=== PATIENT | female | born 1965 | race Caucasian/White ===

== ENCOUNTER 2019-11-22 10:22 | Inpatient (IN) | payer MEDICAID ==
[2019-11-22] VITALS (14 sets, daily range): BP systolic 100–123; BP diastolic 55–76; BMI 24.4
[~2019-11-22] VITALS: Ht 160 cm; Wt 68.1 kg
[2019-11-22 18:02] LABS: BASOPHILS 0.1 % (0-2); EOSINOPHILS 0 % (0-7); HEMATOCRIT 36.8 % (36.0-48.0); HEMOGLOBIN 12.4 g/dL (12-16); MCH 30.4 pg (26.0-34.0); MCHC 33.7 g/dL (31.0-37.0); MCV 90.2 fL (80.0-100.0); MONOCYTES 2.4 % (2-11); NEUTROPHILS 90.5 % (40-80); PLATELET COUNT 325 10x3/uL (130-400); RBC 4.08 10x6/uL (4.00-5.40); RDW 14.1 % (11.5-14.5); WBC 16.7 10x3/uL (4.8-10.8)
[2019-11-22 18:52] LABS: CALCIUM 8.2 mg/dL (8.5-10.1); CREATININE - SERUM 0.9 mg/dL (0.6-1.3)
[2019-11-22 18:55] LABS: ANION GAP 4.1 mmol/L (8-16)
[2019-11-22 18:56] LABS: CARBON DIOXIDE 42.7 mmol/L (21.0-32.0); POTASSIUM - SERUM 2.8 mmol/L (3.5-5.1)
[2019-11-23] VITALS (24 sets, daily range): BP systolic 90–122; BP diastolic 51–93; Ht 160 cm; Wt 68.1 kg
[2019-11-23 05:57] LABS: CALC OSMOLALITY 282 mosm/kg (275-300); CALCIUM 7.9 mg/dL (8.5-10.1); CARBON DIOXIDE 38.8 mmol/L (21.0-32.0); CHLORIDE - SERUM 98 mmol/L (98-107); CREATININE - SERUM 0.8 mg/dL (0.6-1.3); GLUCOSE 135 mg/dL (74-106); SODIUM 139 mmol/L (136-145); UREA NITROGEN 20 mg/dL (7-18); eGFR NON AFRICAN AMERICAN 79 mL/min (90-120)
[2019-11-23 05:59] LABS: POTASSIUM - SERUM 3.4 mmol/L (3.5-5.1)
[2019-11-23 06:03] LABS: ALBUMIN 1.4 g/dL (3.4-5.0); ALKALINE PHOSPHATASE 188 U/L (30-120); ALT (SGPT) 24 U/L (10-68); BILIRUBIN - TOTAL 0.24 mg/dL (0.2-1.3); MAGNESIUM - SERUM 1.6 mg/dL (1.8-2.4); PHOSPHOROUS 2.5 mg/dL (2.5-4.9); PROTEIN - SERUM 5.9 g/dL (6.4-8.2)
[2019-11-23 06:09] LABS: HEPATITIS C ANTIBODY >11.0 S/CO RAT (0.0-0.9)
[2019-11-23 11:32] LABS: BILIRUBIN NEGATIVE (NEGATIVE); GLUCOSE NEGATIVE (NEGATIVE); KETONE NEGATIVE (NEGATIVE); NITRITE NEGATIVE (NEGATIVE); SPECIFIC GRAVITY 1.005 (1.005-1.020); UROBILINOGEN NORMAL (NORMAL)
[2019-11-23 11:33] LABS: BACTERIA FEW /hpf (NEGATIVE); EPITHELIAL CELLS RARE /hpf (0-5); RED CELLS - URINE OCC /hpf (0-5); WHITE CELLS - URINE RARE /hpf (NEGATIVE)
[2019-11-24] VITALS (23 sets, daily range): BP systolic 94–135; BP diastolic 51–101
[2019-11-24 04:51] LABS: BASOPHILS 0 % (0-2); EOSINOPHILS 0 % (0-7); HEMATOCRIT 33.2 % (36.0-48.0); HEMOGLOBIN 10.7 g/dL (12-16); LYMPHOCYTES 7.2 % (15-50); MCH 29.3 pg (26.0-34.0); MCHC 32.2 g/dL (31.0-37.0); MEAN PLATELET VOLUME 10.5 fL (7.4-10.4); MONOCYTES 3.9 % (2-11); NEUTROPHILS 87.9 % (40-80); RBC 3.65 10x6/uL (4.00-5.40); RDW 14.3 % (11.5-14.5); WBC 13.5 10x3/uL (4.8-10.8)
[2019-11-24 04:57] LABS: PLATELET COUNT 445 10x3/uL (130-400)
[2019-11-24 05:11] LABS: CALCIUM 7.6 mg/dL (8.5-10.1); CHLORIDE - SERUM 102 mmol/L (98-107); CREATININE - SERUM 0.8 mg/dL (0.6-1.3); MAGNESIUM - SERUM 1.5 mg/dL (1.8-2.4); PHOSPHOROUS 2.5 mg/dL (2.5-4.9); SODIUM 137 mmol/L (136-145); eGFR NON AFRICAN AMERICAN 79 mL/min (90-120)
[2019-11-24 05:12] LABS: CALC OSMOLALITY 280 mosm/kg (275-300); GLUCOSE 210 mg/dL (74-106); UREA NITROGEN 14 mg/dL (7-18)
[2019-11-24 10:10] LABS: IMMUNOGLOBULIN A 475 mg/dL (87-352); IMMUNOGLOBULIN G 788 mg/dL (700-1600)
[2019-11-24 14:09] LABS: HIV-1 RNA BY PCR <20 (())
--- NOTE | 2019-11-24 16:18 | MORECARE ---
CASE MANAGEMENT DISCHARGE SUMMARY PATIENT: ECHO RINALDI UNIT: [id number] ADM DATE: 11/22/19 AGE: 54 : 67 SEX: F ROOM/BED: D.2313 AUTHOR: CLAU KEY PHYSICIAN: REFERRING PHYSICIAN: SHREE DOMÍNGUEZ MD DATE OF SERVICE: 11/24/19 Discharge Plan Patient Name: ECHO RINALDI Facility: [facility]:[place] : 1965 Planned Disposition: Anticipated Discharge Date: Discharge Date: Expected LOS: Initial Reviewer: [email or web address] Initial Review Date: 11/24/2019 Generated: 11/24/19 5:18 pm Comments DCP- Discharge Planning Updated by [email or web address]: Maryanne Torie on 11/24/19 3:[address] Patient Name: ECHO RINLADI Admission Status: Elective Accout number: [id number] Admission Date: 11-22-2019 : 1965 Admission Diagnosis: Attending: SHREE DOMÍNGUEZ Current LOS: 2 Anticipated DC Date: Planned Disposition: Primary Insurance: MEDICAID [place] PENDING Discharge Planning Comments: CM MET WITH PATIENT AFTER OBTAINING VERBAL CONSENT. PATIENT PLANS TO DC TO HOME WHEN BETTER. STATES NO EQUIPMENT AT HOME. SHE HAS A CHEST TUBE AND IS ON O2 AT THIS TIME. MAY NEED WALK TEST PRIOR TO DC. UNSURE OF DC NEEDS AT THIS TIME. International Freight Forwarder: Maryanne Vogt DCPIA - Discharge Planning Initial Assessment Updated by [email or web address]: Maryanne Vogt on 11/24/19 4:06 pm * Is the patient Alert and Oriented? Yes * PCP NONE * Pharmacy [facility] * Preadmission Environment Home with Family * ADLs Independent * Additional services required to return to the preadmission environment? Yes * Can the patient safely return to the preadmission environment? Yes * Has this patient been hospitalized within the prior 30 days at any hospital? No Patient Name: ECHO RINALDI Page 24487 at 1618 All edits/amendments must be made on the electronic document DICTATION DATE: 11/24/19 1618 CONTENT PUBLISHER: CARMELINA 11/24/19 1618 RPT#: [id number] DC DATE: STATUS: ADM IN [facility] [address] [place] [address] END OF REPORT
[2019-11-25] VITALS (24 sets, daily range): BP systolic 96–167; BP diastolic 59–107
[2019-11-25 04:13] LABS: BASOPHILS 0 % (0-2); EOSINOPHILS 0 % (0-7); HEMATOCRIT 35.2 % (36.0-48.0); HEMOGLOBIN 11.2 g/dL (12-16); IMMATURE GRANULOCYTES 0.9 % (0-5); LYMPHOCYTES 5.7 % (15-50); MCH 29.2 pg (26.0-34.0); MCHC 31.8 g/dL (31.0-37.0); MCV 91.9 fL (80.0-100.0); MEAN PLATELET VOLUME 10.3 fL (7.4-10.4); NEUTROPHILS 90.4 % (40-80); PLATELET COUNT 498 10x3/uL (130-400); RBC 3.83 10x6/uL (4.00-5.40); RDW 14.6 % (11.5-14.5); WBC 14.9 10x3/uL (4.8-10.8)
[2019-11-25 04:29] LABS: CHLORIDE - SERUM 103 mmol/L (98-107); CREATININE - SERUM 0.8 mg/dL (0.6-1.3); MAGNESIUM - SERUM 1.8 mg/dL (1.8-2.4); POTASSIUM - SERUM 4.5 mmol/L (3.5-5.1); SODIUM 138 mmol/L (136-145); eGFR NON AFRICAN AMERICAN 79 mL/min (90-120)
[2019-11-25 04:37] LABS: CALC OSMOLALITY 280 mosm/kg (275-300); GLUCOSE 140 mg/dL (74-106); PHOSPHOROUS 3.3 mg/dL (2.5-4.9); UREA NITROGEN 22 mg/dL (7-18)
[2019-11-26] VITALS (24 sets, daily range): BP systolic 90–169; BP diastolic 55–133
[2019-11-26 04:10] LABS: BASOPHILS 0.1 % (0-2); EOSINOPHILS 0 % (0-7); HEMATOCRIT 33.3 % (36.0-48.0); HEMOGLOBIN 10.7 g/dL (12-16); IMMATURE GRANULOCYTES 0.6 % (0-5); LYMPHOCYTES 4.5 % (15-50); MCH 29.4 pg (26.0-34.0); MCHC 32.1 g/dL (31.0-37.0); MCV 91.5 fL (80.0-100.0); MEAN PLATELET VOLUME 9.9 fL (7.4-10.4); MONOCYTES 2.3 % (2-11); NEUTROPHILS 92.5 % (40-80); PLATELET COUNT 512 10x3/uL (130-400); RBC 3.64 10x6/uL (4.00-5.40); RDW 14.4 % (11.5-14.5); WBC 18.1 10x3/uL (4.8-10.8)
[2019-11-26 04:36] LABS: CALC OSMOLALITY 285 mosm/kg (275-300); CALCIUM 7.8 mg/dL (8.5-10.1); CARBON DIOXIDE 30.7 mmol/L (21.0-32.0); CHLORIDE - SERUM 104 mmol/L (98-107); CREATININE - SERUM 0.8 mg/dL (0.6-1.3); GLUCOSE 145 mg/dL (74-106); MAGNESIUM - SERUM 1.7 mg/dL (1.8-2.4); POTASSIUM - SERUM 4.2 mmol/L (3.5-5.1); SODIUM 140 mmol/L (136-145); UREA NITROGEN 24 mg/dL (7-18); eGFR NON AFRICAN AMERICAN 79 mL/min (90-120)
[2019-11-26 04:39] LABS: PHOSPHOROUS 4.5 mg/dL (2.5-4.9)
[2019-11-26 20:06] LABS: IMMUNOGLOBULIN E 257 IU/mL (6-495)
[2019-11-27] VITALS (20 sets, daily range): BP systolic 93–123; BP diastolic 47–85
[2019-11-27 05:12] LABS: BASOPHILS 0 % (0-2); EOSINOPHILS 0 % (0-7); HEMATOCRIT 32.2 % (36.0-48.0); HEMOGLOBIN 10.4 g/dL (12-16); IMMATURE GRANULOCYTES 0.6 % (0-5); LYMPHOCYTES 6.6 % (15-50); MCH 29.2 pg (26.0-34.0); MCHC 32.3 g/dL (31.0-37.0); MCV 90.4 fL (80.0-100.0); MEAN PLATELET VOLUME 9.8 fL (7.4-10.4); MONOCYTES 3.2 % (2-11); NEUTROPHILS 89.6 % (40-80); PLATELET COUNT 563 10x3/uL (130-400); RBC 3.56 10x6/uL (4.00-5.40); RDW 14.6 % (11.5-14.5); WBC 15.4 10x3/uL (4.8-10.8)
[2019-11-27 05:22] LABS: ANION GAP 11.6 mmol/L (8-16); CALCIUM 7.5 mg/dL (8.5-10.1); CARBON DIOXIDE 31.1 mmol/L (21.0-32.0); CREATININE - SERUM 0.9 mg/dL (0.6-1.3); MAGNESIUM - SERUM 1.8 mg/dL (1.8-2.4); PHOSPHOROUS 3.7 mg/dL (2.5-4.9); POTASSIUM - SERUM 3.7 mmol/L (3.5-5.1); VANCOMYCIN - TROUGH 22.5 ug/mL (10.0-20.0)
[2019-11-28] VITALS (24 sets, daily range): BP systolic 81–115; BP diastolic 42–79
[2019-11-28 04:24] LABS: BASOPHILS 0 % (0-2); EOSINOPHILS 1.6 % (0-7); HEMATOCRIT 35.7 % (36.0-48.0); HEMOGLOBIN 11.5 g/dL (12-16); IMMATURE GRANULOCYTES 0.8 % (0-5); LYMPHOCYTES 13.3 % (15-50); MCH 29.9 pg (26.0-34.0); MCHC 32.2 g/dL (31.0-37.0); MEAN PLATELET VOLUME 9.7 fL (7.4-10.4); NEUTROPHILS 79.3 % (40-80); PLATELET COUNT 661 10x3/uL (130-400); RBC 3.85 10x6/uL (4.00-5.40); RDW 15.3 % (11.5-14.5); WBC 15.8 10x3/uL (4.8-10.8)
[2019-11-28 04:45] LABS: MCV 92.7 fL (80.0-100.0)
[2019-11-28 05:02] LABS: CALC OSMOLALITY 283 mosm/kg (275-300); CALCIUM 7.6 mg/dL (8.5-10.1); CARBON DIOXIDE 31.3 mmol/L (21.0-32.0); CHLORIDE - SERUM 104 mmol/L (98-107); CREATININE - SERUM 0.8 mg/dL (0.6-1.3); MAGNESIUM - SERUM 1.7 mg/dL (1.8-2.4); PHOSPHOROUS 4.2 mg/dL (2.5-4.9); POTASSIUM - SERUM 3.7 mmol/L (3.5-5.1); SODIUM 141 mmol/L (136-145); UREA NITROGEN 25 mg/dL (7-18); eGFR NON AFRICAN AMERICAN 79 mL/min (90-120)
[2019-11-28 05:04] LABS: GLUCOSE 81 mg/dL (74-106)
[2019-11-29] VITALS (22 sets, daily range): BP systolic 74–132; BP diastolic 50–92
[2019-11-30] VITALS (23 sets, daily range): BP systolic 83–150; BP diastolic 65–109
[2019-11-30 06:09] LABS: IGG SUBCLASS 1 388 mg/dL (248-810); IGG SUBCLASS 2 159 mg/dL (130-555); IGG SUBCLASS 3 44 mg/dL (15-102); IGG SUBCLASS 4 10 mg/dL (2-96); IGGS - IGG SERUM 682 mg/dL (700-1600)
[2019-12-01] VITALS (24 sets, daily range): BP systolic 104–151; BP diastolic 44–103
--- NOTE | 2019-12-01 11:31 | OP ---
PATIENT NAME: ECHO RINALDI MEDICAL RECORD: [id number] :67 LOCATION:.[facility] D.2313 ADMISSION DATE:11/22/19 SURGEON: IFEANYI TSE MD DATE OF OPERATION: 11/30/2019 SURGEON: Ifeanyi Tse MD PROCEDURE: Left tube thoracostomy. INDICATION: Bullous emphysema and pneumonia, left lung and pneumothorax. PROCEDURE IN DETAIL: The patient in the operating suite, the old chest tube where it had sutured in has essentially come out and it was removed. The left chest was prepped and draped. A 1% Xylocaine was used for local anesthetic and the pneumothorax was localized with a small needle. A 2 cm skin incision was made, spread down to the chest wall and a trocar 28 chest tube was inserted without difficulty and sutured into place, connected to the Pleur-evac. The old chest tube site was irrigated with vancomycin irrigation and closed with 2-0 nylon sutures and the patient returned to the ICU in stable condition. TRANSINT:[id number] Voice Confirmation ID: [id number] DOCUMENT ID: [id number] IFEANYI TSE MD at 1131 CC: PENNY GRACE MD [id number] DICTATION DATE: 11/30/19 1420 DOWEL SETTING MACHINE OPERATOR: 12/01/19 0102 ADM IN [place] [address] [place] [id number]
[2019-12-02] VITALS (23 sets, daily range): BP systolic 107–153; BP diastolic 58–94
[2019-12-03] VITALS (24 sets, daily range): BP systolic 105–143; BP diastolic 65–101
[2019-12-03 02:47] LABS: BASOPHILS 0 % (0-2); EOSINOPHILS 0 % (0-7); HEMATOCRIT 34.7 % (36.0-48.0); HEMOGLOBIN 10.9 g/dL (12-16); IMMATURE GRANULOCYTES 0.4 % (0-5); LYMPHOCYTES 4.9 % (15-50); MCH 29.9 pg (26.0-34.0); MCHC 31.4 g/dL (31.0-37.0); MCV 95.1 fL (80.0-100.0); MEAN PLATELET VOLUME 9.3 fL (7.4-10.4); MONOCYTES 1.4 % (2-11); NEUTROPHILS 93.3 % (40-80); RBC 3.65 10x6/uL (4.00-5.40); RDW 15.6 % (11.5-14.5); WBC 12.6 10x3/uL (4.8-10.8)
[2019-12-03 02:53] LABS: PLATELET COUNT 460 10x3/uL (130-400)
[2019-12-03 02:58] LABS: INR 0.87 (0.85-1.17); PROTIME 11.9 SECONDS (11.6-15.0)
[2019-12-03 03:12] LABS: ALKALINE PHOSPHATASE 121 U/L (30-120); ALT (SGPT) 25 U/L (10-68); BILIRUBIN - TOTAL 0.23 mg/dL (0.2-1.3); CALC OSMOLALITY 285 mosm/kg (275-300); CALCIUM 8.3 mg/dL (8.5-10.1); CHLORIDE - SERUM 105 mmol/L (98-107); CREATININE - SERUM 0.8 mg/dL (0.6-1.3); POTASSIUM - SERUM 4.3 mmol/L (3.5-5.1); PROTEIN - SERUM 5.5 g/dL (6.4-8.2); SODIUM 139 mmol/L (136-145); UREA NITROGEN 20 mg/dL (7-18); eGFR NON AFRICAN AMERICAN 79 mL/min (90-120)
[2019-12-03 03:13] LABS: GLUCOSE 190 mg/dL (74-106)
[2019-12-04] VITALS (27 sets, daily range): BP systolic 92–139; BP diastolic 51–85
[2019-12-04 05:28] LABS: BASOPHILS 0 % (0-2); EOSINOPHILS 0 % (0-7); HEMATOCRIT 32.8 % (36.0-48.0); HEMOGLOBIN 10.3 g/dL (12-16); IMMATURE GRANULOCYTES 0.6 % (0-5); LYMPHOCYTES 6.9 % (15-50); MCH 29.8 pg (26.0-34.0); MCHC 31.4 g/dL (31.0-37.0); MCV 94.8 fL (80.0-100.0); MEAN PLATELET VOLUME 9.7 fL (7.4-10.4); MONOCYTES 3.3 % (2-11); NEUTROPHILS 89.2 % (40-80); RBC 3.46 10x6/uL (4.00-5.40); RDW 15.5 % (11.5-14.5); WBC 10.9 10x3/uL (4.8-10.8)
[2019-12-04 05:33] LABS: PLATELET COUNT 246 10x3/uL (130-400)
[2019-12-04 06:02] LABS: ALKALINE PHOSPHATASE 117 U/L (30-120); ALT (SGPT) 26 U/L (10-68); BILIRUBIN - TOTAL 0.17 mg/dL (0.2-1.3); CALC OSMOLALITY 282 mosm/kg (275-300); CALCIUM 7.8 mg/dL (8.5-10.1); CARBON DIOXIDE 32.2 mmol/L (21.0-32.0); CHLORIDE - SERUM 104 mmol/L (98-107); CREATININE - SERUM 0.7 mg/dL (0.6-1.3); GLUCOSE 163 mg/dL (74-106); POTASSIUM - SERUM 4.1 mmol/L (3.5-5.1); PROTEIN - SERUM 5.3 g/dL (6.4-8.2); SODIUM 138 mmol/L (136-145); UREA NITROGEN 20 mg/dL (7-18); eGFR NON AFRICAN AMERICAN > 90 mL/min (90-120)
[2019-12-04 07:11] LABS: INR 0.89 (0.85-1.17)
[2019-12-05] VITALS (39 sets, daily range): BP systolic 91–121; BP diastolic 30–92
[2019-12-05 06:58] LABS: HEMATOCRIT 27.1 % (36.0-48.0); HEMOGLOBIN 8.9 g/dL (12-16); MCH 30.7 pg (26.0-34.0); MCHC 32.8 g/dL (31.0-37.0); MCV 93.4 fL (80.0-100.0); MEAN PLATELET VOLUME 9.4 fL (7.4-10.4); RBC 2.9 10x6/uL (4.00-5.40); RDW 15.5 % (11.5-14.5); WBC 13.5 10x3/uL (4.8-10.8)
[2019-12-05 07:12] LABS: ALBUMIN 1.8 g/dL (3.4-5.0); ALKALINE PHOSPHATASE 90 U/L (30-120); ALT (SGPT) 25 U/L (10-68); BILIRUBIN - TOTAL 0.31 mg/dL (0.2-1.3); CALC OSMOLALITY 274 mosm/kg (275-300); CALCIUM 7.7 mg/dL (8.5-10.1); CARBON DIOXIDE 33.5 mmol/L (21.0-32.0); CHLORIDE - SERUM 102 mmol/L (98-107); CREATININE - SERUM 0.6 mg/dL (0.6-1.3); GLUCOSE 94 mg/dL (74-106); MAGNESIUM - SERUM 1.8 mg/dL (1.8-2.4); PHOSPHOROUS 3.7 mg/dL (2.5-4.9); POTASSIUM - SERUM 3.7 mmol/L (3.5-5.1); PROTEIN - SERUM 4.5 g/dL (6.4-8.2); SODIUM 136 mmol/L (136-145); UREA NITROGEN 20 mg/dL (7-18); eGFR NON AFRICAN AMERICAN > 90 mL/min (90-120)
--- NOTE | 2019-12-05 11:43 | OP ---
PATIENT NAME: ECHO RINALDI MEDICAL RECORD: [id number] :67 LOCATION:D[facility] D.CV03 ADMISSION DATE:11/22/19 SURGEON: DANY TSE MD DATE OF OPERATION: 12/04/2019 SURGEON: Dany Tse MD PROCEDURES PERFORMED: 1. Left thoracotomy. 2. Decortication left lower lobe. 3. Left upper lobe lobectomy. 4. Bronchoscopy. PREOPERATIVE DIAGNOSIS: Empyema and pneumonia. 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 ANESTHESIA: Double lumen, general endotracheal anesthesia. ESTIMATED BLOOD LOSS: 200 cc. COMPLICATION: None. SPECIMENS: 1. Pleural culture. 2. Abscess cavity culture. 3. Biopsy of the necrotic upper lobe. 4. Completion lobectomy of the left upper lobe. 5. Necrotic section upper lobe. CONDITION: Stable. DISPOSITION: ICU. OPERATIVE FINDINGS: 1. Federico pus within the pleural cavity walled off in the lower area by the lower lung, which was decorticated with a chronic appearing pleural rind, small air leaks after decortication. 2. Most of the upper lobe was brownish discoloration with destruction of the lung tissue and evidence of bronchopleural fistula from the depths making any lung resection less than a lobectomy and possible. 3. Bronchial stump airtight under water after resection. 4. Bronchoscopy with no endobronchial lesions. INDICATION: Persistent air leak consistent with a chronic pneumonia and bronchopleural fistula as well as empyema and loculated fluid posteriorly PROCEDURE IN DETAIL: The patient was brought to the operative suite. Double lumen general endotracheal anesthesia was obtained, right lung ventilation was performed. The patient turned to lateral decubitus position with appropriate padding. The chest tube was removed. The chest was sterilely prepped and draped. Posterolateral thoracotomy was made. A portion of the 6th rib was taken out posteriorly to allow a trapdoor type thoracotomy, pleural cavity was entered. The pleural fluid was cultured. The parietal pleura and visceral OPERATIVE REPORT [id number] ECHO RINALDI pleura were cleared. Decortication of the lower lobe was performed. The fissure was opened and the inferior pulmonary ligament was taken down to allow expansion lower lobe. Attention of the upper lobe revealed that the lung was necrotic with no way to save this lung; therefore branches of the pulmonary artery were stapled or tied and divided. The superior pulmonary vein was divided between a staple. The fissure was completed with a staple line and the bronchus was clamped. The lower lobe inflated then reduced. Bronchus was stapled and resected. Bronchial stump was intact. It was oversewn. Thorough irrigation was undertaken. The pleura was inflamed from the previous empyema and not amenable to use as a pleural flap over the bronchus, but the hilum of the lung covered the bronchus well. The lung was reinflated with no apparent air leak, tubes were placed posteriorly and superiorly. Progel was placed along the fissure and then the chest was closed with pericostal sutures running muscle layer times 2 subcutaneous and skin clips. The patient is stable to CV ICU. TRANSINT:[id number] Voice Confirmation ID: [id number] DOCUMENT ID: [id number] DANY TSE MD at 1143 CC: YOSELIN CHERRY MD [id number] DICTATION DATE: 12/04/19 1319 HR DIRECTOR: 12/04/19 1804 ADM IN [facility] [address] [place] [address]
[2019-12-06] VITALS (44 sets, daily range): BP systolic 89–141; BP diastolic 38–85
[2019-12-06 06:39] LABS: BASOPHILS 0.1 % (0-2); EOSINOPHILS 1.6 % (0-7); HEMATOCRIT 30.1 % (36.0-48.0); HEMOGLOBIN 9.4 g/dL (12-16); IMMATURE GRANULOCYTES 0.9 % (0-5); LYMPHOCYTES 18.7 % (15-50); MCH 29.6 pg (26.0-34.0); MCHC 31.2 g/dL (31.0-37.0); MCV 94.7 fL (80.0-100.0); MEAN PLATELET VOLUME 9.7 fL (7.4-10.4); MONOCYTES 5.6 % (2-11); NEUTROPHILS 73.1 % (40-80); PLATELET COUNT 314 10x3/uL (130-400); RBC 3.18 10x6/uL (4.00-5.40); RDW 15.8 % (11.5-14.5); WBC 11.6 10x3/uL (4.8-10.8)
[2019-12-06 06:43] LABS: ALBUMIN 1.8 g/dL (3.4-5.0); ALKALINE PHOSPHATASE 91 U/L (30-120); ALT (SGPT) 28 U/L (10-68); BILIRUBIN - TOTAL 0.32 mg/dL (0.2-1.3); CALC OSMOLALITY 280 mosm/kg (275-300); CALCIUM 7.8 mg/dL (8.5-10.1); CARBON DIOXIDE 32.9 mmol/L (21.0-32.0); CHLORIDE - SERUM 104 mmol/L (98-107); CREATININE - SERUM 0.6 mg/dL (0.6-1.3); GLUCOSE 80 mg/dL (74-106); MAGNESIUM - SERUM 1.8 mg/dL (1.8-2.4); POTASSIUM - SERUM 3.8 mmol/L (3.5-5.1); PROTEIN - SERUM 4.9 g/dL (6.4-8.2); SODIUM 141 mmol/L (136-145); UREA NITROGEN 15 mg/dL (7-18); eGFR NON AFRICAN AMERICAN > 90 mL/min (90-120)
[2019-12-06 06:53] LABS: PHOSPHOROUS 2.7 mg/dL (2.5-4.9)
[2019-12-07] VITALS (24 sets, daily range): BP systolic 97–136; BP diastolic 52–77
[2019-12-07 06:30] LABS: HEMATOCRIT 29.4 % (36.0-48.0); HEMOGLOBIN 9.3 g/dL (12-16); MCH 29.6 pg (26.0-34.0); MCHC 31.6 g/dL (31.0-37.0); MCV 93.6 fL (80.0-100.0); MEAN PLATELET VOLUME 10.1 fL (7.4-10.4); RBC 3.14 10x6/uL (4.00-5.40); WBC 11.4 10x3/uL (4.8-10.8)
[2019-12-07 06:55] LABS: ALBUMIN 1.7 g/dL (3.4-5.0); ALKALINE PHOSPHATASE 91 U/L (30-120); ALT (SGPT) 26 U/L (10-68); BILIRUBIN - TOTAL 0.22 mg/dL (0.2-1.3); CALC OSMOLALITY 275 mosm/kg (275-300); CALCIUM 7.9 mg/dL (8.5-10.1); CHLORIDE - SERUM 101 mmol/L (98-107); CREATININE - SERUM 0.5 mg/dL (0.6-1.3); GLUCOSE 117 mg/dL (74-106); POTASSIUM - SERUM 4.1 mmol/L (3.5-5.1); PROTEIN - SERUM 5.1 g/dL (6.4-8.2); SODIUM 137 mmol/L (136-145); UREA NITROGEN 14 mg/dL (7-18); eGFR NON AFRICAN AMERICAN > 90 mL/min (90-120)
--- NOTE | 2019-12-07 19:59 | MORECARE ---
CASE MANAGEMENT DISCHARGE SUMMARY PATIENT: ECHO RINALDI UNIT: [id number] ADM DATE: 11/22/19 AGE: 54 : 67 SEX: F ROOM/BED: D[facility] AUTHOR: SHAHID,DOC PHYSICIAN: REFERRING PHYSICIAN: SHREE DOMÍNGUEZ MD DATE OF SERVICE: 12/07/19 Discharge Plan Patient Name: ECHO RINALDI Facility: [facility]:[place] : 1965 Planned Disposition: Anticipated Discharge Date: Discharge Date: Expected LOS: Initial Reviewer: [id number] Initial Review Date: 11/24/2019 Generated: 12/07/19 8:58 pm Comments DCP- Discharge Planning Updated by [email or web address]: Rosibel Aquino on 12/07/19 6:[address] CM checked with Glynn in [employer] to see if patient's Medicaid has went through processing yet. He stated that it hasn't yet but hopefully any day. CM will continue to follow this status to help with discharge planning / needs. DCP- Discharge Planning Updated by [email or web address]: Maryanne Vogt on 11/24/19 3:[address] Patient Name: ECHO RINALDI Admission Status: Elective Accout number: [id number] Admission Date: 11-22-2019 : 1965 Admission Diagnosis: Attending: SHREE DOMÍNGUEZ Current LOS: 2 Anticipated DC Date: Planned Disposition: Primary Insurance: MEDICAID [place] PENDING Discharge Planning Comments: CM MET WITH PATIENT AFTER OBTAINING VERBAL CONSENT. PATIENT PLANS TO DC TO HOME WHEN BETTER. STATES NO EQUIPMENT AT HOME. SHE HAS A CHEST TUBE AND IS ON O2 AT THIS TIME. MAY NEED WALK TEST PRIOR TO DC. UNSURE OF DC NEEDS AT THIS TIME. Sagger Soak: Maryanne Vogt DCPIA - Discharge Planning Initial Assessment Updated by [email or web address]: Maryanne Vogt on 11/24/19 4:06 pm * Is the patient Alert and Oriented? Yes * PCP NONE * Pharmacy [facility] * Preadmission Environment Home with Family * ADLs Independent * Additional services required to return to the preadmission environment? Yes * Can the patient safely return to the preadmission environment? Yes * Has this patient been hospitalized within the prior 30 days at any hospital? No Last DP export: 11/24/19 3:18 pm Patient Name: ECHO RINALDI Page 28544 at 195 All edits/amendments must be made on the electronic document DICTATION DATE: 12/07/191957 BUFFING LINE SET UP WORKER: CARMELINA 12/07/191957 RPT#: [id number] DC DATE: STATUS: ADM IN [facility] [address] [place] [address] END OF REPORT
[2019-12-08] VITALS (25 sets, daily range): BP systolic 92–135; BP diastolic 53–75
[2019-12-08 06:09] LABS: HEMATOCRIT 27.3 % (36.0-48.0); HEMOGLOBIN 8.6 g/dL (12-16); MCH 29.8 pg (26.0-34.0); MCHC 31.5 g/dL (31.0-37.0); MCV 94.5 fL (80.0-100.0); MEAN PLATELET VOLUME 9.8 fL (7.4-10.4); RBC 2.89 10x6/uL (4.00-5.40); WBC 9.3 10x3/uL (4.8-10.8)
[2019-12-08 06:48] LABS: ALBUMIN 1.7 g/dL (3.4-5.0); ALKALINE PHOSPHATASE 92 U/L (30-120); ALT (SGPT) 24 U/L (10-68); BILIRUBIN - TOTAL 0.16 mg/dL (0.2-1.3); CALC OSMOLALITY 276 mosm/kg (275-300); CALCIUM 7.8 mg/dL (8.5-10.1); CARBON DIOXIDE 33.8 mmol/L (21.0-32.0); CHLORIDE - SERUM 103 mmol/L (98-107); CREATININE - SERUM 0.6 mg/dL (0.6-1.3); GLUCOSE 108 mg/dL (74-106); POTASSIUM - SERUM 3.8 mmol/L (3.5-5.1); PROTEIN - SERUM 4.8 g/dL (6.4-8.2); SODIUM 138 mmol/L (136-145); UREA NITROGEN 12 mg/dL (7-18); eGFR NON AFRICAN AMERICAN > 90 mL/min (90-120)
[2019-12-09] VITALS (24 sets, daily range): BP systolic 88–130; BP diastolic 55–80
[2019-12-09 06:02] LABS: HEMATOCRIT 28.3 % (36.0-48.0); HEMOGLOBIN 8.8 g/dL (12-16); MCH 29.4 pg (26.0-34.0); MCHC 31.1 g/dL (31.0-37.0); MCV 94.6 fL (80.0-100.0); RBC 2.99 10x6/uL (4.00-5.40); RDW 16.1 % (11.5-14.5); WBC 8.3 10x3/uL (4.8-10.8)
[2019-12-09 06:25] LABS: ALBUMIN 1.7 g/dL (3.4-5.0); ALKALINE PHOSPHATASE 99 U/L (30-120); ALT (SGPT) 26 U/L (10-68); BILIRUBIN - TOTAL 0.17 mg/dL (0.2-1.3); CALC OSMOLALITY 274 mosm/kg (275-300); CALCIUM 7.9 mg/dL (8.5-10.1); CARBON DIOXIDE 32.4 mmol/L (21.0-32.0); CHLORIDE - SERUM 102 mmol/L (98-107); CREATININE - SERUM 0.6 mg/dL (0.6-1.3); GLUCOSE 83 mg/dL (74-106); POTASSIUM - SERUM 4.3 mmol/L (3.5-5.1); PROTEIN - SERUM 5.1 g/dL (6.4-8.2); SODIUM 138 mmol/L (136-145); UREA NITROGEN 13 mg/dL (7-18); eGFR NON AFRICAN AMERICAN > 90 mL/min (90-120)
[2019-12-10] VITALS (23 sets, daily range): BP systolic 84–124; BP diastolic 47–83
[2019-12-10 05:30] LABS: HEMATOCRIT 28.1 % (36.0-48.0); HEMOGLOBIN 8.9 g/dL (12-16); MCH 30.1 pg (26.0-34.0); MCHC 31.7 g/dL (31.0-37.0); MCV 94.9 fL (80.0-100.0); MEAN PLATELET VOLUME 9.9 fL (7.4-10.4); RBC 2.96 10x6/uL (4.00-5.40); RDW 15.7 % (11.5-14.5); WBC 7.3 10x3/uL (4.8-10.8)
[2019-12-10 05:59] LABS: ALBUMIN 1.8 g/dL (3.4-5.0); ALKALINE PHOSPHATASE 104 U/L (30-120); ALT (SGPT) 25 U/L (10-68); BILIRUBIN - TOTAL 0.22 mg/dL (0.2-1.3); CALC OSMOLALITY 279 mosm/kg (275-300); CALCIUM 8.1 mg/dL (8.5-10.1); CARBON DIOXIDE 33.7 mmol/L (21.0-32.0); CHLORIDE - SERUM 104 mmol/L (98-107); CREATININE - SERUM 0.6 mg/dL (0.6-1.3); GLUCOSE 118 mg/dL (74-106); POTASSIUM - SERUM 4.2 mmol/L (3.5-5.1); PROTEIN - SERUM 5.2 g/dL (6.4-8.2); SODIUM 140 mmol/L (136-145); UREA NITROGEN 12 mg/dL (7-18); eGFR NON AFRICAN AMERICAN > 90 mL/min (90-120)
[2019-12-11] VITALS (24 sets, daily range): BP systolic 97–134; BP diastolic 53–87
[2019-12-11 07:17] LABS: BASOPHILS 0.5 % (0-2); EOSINOPHILS 3.5 % (0-7); HEMOGLOBIN 10.4 g/dL (12-16); IMMATURE GRANULOCYTES 1.8 % (0-5); LYMPHOCYTES 23.8 % (15-50); MCH 29.9 pg (26.0-34.0); MCHC 31.5 g/dL (31.0-37.0); MCV 94.8 fL (80.0-100.0); MEAN PLATELET VOLUME 9.9 fL (7.4-10.4); MONOCYTES 3.4 % (2-11); RBC 3.48 10x6/uL (4.00-5.40); RDW 16.1 % (11.5-14.5)
[2019-12-11 07:28] LABS: PLATELET COUNT 361 10x3/uL (130-400); WBC 9.7 10x3/uL (4.8-10.8)
[2019-12-11 07:33] LABS: ALKALINE PHOSPHATASE 138 U/L (30-120); ALT (SGPT) 31 U/L (10-68); BILIRUBIN - TOTAL 0.21 mg/dL (0.2-1.3); CALC OSMOLALITY 268 mosm/kg (275-300); CALCIUM 8.6 mg/dL (8.5-10.1); CARBON DIOXIDE 33.1 mmol/L (21.0-32.0); CHLORIDE - SERUM 100 mmol/L (98-107); CREATININE - SERUM 0.7 mg/dL (0.6-1.3); GLUCOSE 90 mg/dL (74-106); POTASSIUM - SERUM 3.6 mmol/L (3.5-5.1); PROTEIN - SERUM 6.5 g/dL (6.4-8.2); SODIUM 135 mmol/L (136-145); UREA NITROGEN 11 mg/dL (7-18); eGFR NON AFRICAN AMERICAN > 90 mL/min (90-120)
[2019-12-11 07:34] LABS: ALBUMIN 2.5 g/dL (3.4-5.0)
[2019-12-12] VITALS (24 sets, daily range): BP systolic 94–124; BP diastolic 60–77
[2019-12-12 06:06] LABS: HEMOGLOBIN 8.6 g/dL (12-16); MCH 29.6 pg (26.0-34.0); MCHC 31.9 g/dL (31.0-37.0); MEAN PLATELET VOLUME 9.6 fL (7.4-10.4); RBC 2.91 10x6/uL (4.00-5.40); RDW 16.2 % (11.5-14.5); WBC 7.5 10x3/uL (4.8-10.8)
[2019-12-12 06:09] LABS: MCV 92.8 fL (80.0-100.0)
[2019-12-12 06:27] LABS: ALBUMIN 1.9 g/dL (3.4-5.0); ALKALINE PHOSPHATASE 108 U/L (30-120); ALT (SGPT) 26 U/L (10-68); CALC OSMOLALITY 278 mosm/kg (275-300); CARBON DIOXIDE 32.5 mmol/L (21.0-32.0); CHLORIDE - SERUM 104 mmol/L (98-107); CREATININE - SERUM 0.7 mg/dL (0.6-1.3); GLUCOSE 84 mg/dL (74-106); POTASSIUM - SERUM 3.7 mmol/L (3.5-5.1); SODIUM 141 mmol/L (136-145); UREA NITROGEN 11 mg/dL (7-18); eGFR NON AFRICAN AMERICAN > 90 mL/min (90-120)
[2019-12-13] VITALS (21 sets, daily range): BP systolic 97–130; BP diastolic 57–86
[2019-12-13 07:03] LABS: HEMATOCRIT 30.7 % (36.0-48.0); HEMOGLOBIN 9.7 g/dL (12-16); MCH 29.8 pg (26.0-34.0); MCHC 31.6 g/dL (31.0-37.0); MCV 94.2 fL (80.0-100.0); MEAN PLATELET VOLUME 9.9 fL (7.4-10.4); RBC 3.26 10x6/uL (4.00-5.40); RDW 16.3 % (11.5-14.5)
[2019-12-13 07:05] LABS: ALBUMIN 2.2 g/dL (3.4-5.0); ALKALINE PHOSPHATASE 123 U/L (30-120); BILIRUBIN - TOTAL 0.32 mg/dL (0.2-1.3); CALC OSMOLALITY 274 mosm/kg (275-300); CALCIUM 8.3 mg/dL (8.5-10.1); CARBON DIOXIDE 27.1 mmol/L (21.0-32.0); CHLORIDE - SERUM 103 mmol/L (98-107); CREATININE - SERUM 0.6 mg/dL (0.6-1.3); GLUCOSE 96 mg/dL (74-106); POTASSIUM - SERUM 3.6 mmol/L (3.5-5.1); PROTEIN - SERUM 5.7 g/dL (6.4-8.2); SODIUM 138 mmol/L (136-145); UREA NITROGEN 10 mg/dL (7-18); eGFR NON AFRICAN AMERICAN > 90 mL/min (90-120)
[2019-12-13 07:07] LABS: ALT (SGPT) 37 U/L (10-68)
[2019-12-13 07:14] LABS: WBC 10.2 10x3/uL (4.8-10.8)
[2019-12-14] VITALS (10 sets, daily range): BP systolic 99–138; BP diastolic 61–81
[2019-12-14 07:57] LABS: BASOPHILS 0.4 % (0-2); EOSINOPHILS 3.6 % (0-7); HEMATOCRIT 32.1 % (36.0-48.0); IMMATURE GRANULOCYTES 1.1 % (0-5); LYMPHOCYTES 27.3 % (15-50); MCH 29.3 pg (26.0-34.0); MCHC 31.2 g/dL (31.0-37.0); MCV 94.1 fL (80.0-100.0); MEAN PLATELET VOLUME 9.8 fL (7.4-10.4); MONOCYTES 5.1 % (2-11); NEUTROPHILS 62.5 % (40-80); PLATELET COUNT 430 10x3/uL (130-400); RBC 3.41 10x6/uL (4.00-5.40); RDW 16.3 % (11.5-14.5)
[2019-12-14 08:05] LABS: CALC OSMOLALITY 277 mosm/kg (275-300); CALCIUM 8.3 mg/dL (8.5-10.1); CARBON DIOXIDE 29.4 mmol/L (21.0-32.0); CHLORIDE - SERUM 104 mmol/L (98-107); GLUCOSE 105 mg/dL (74-106); POTASSIUM - SERUM 3.7 mmol/L (3.5-5.1); SODIUM 139 mmol/L (136-145); UREA NITROGEN 12 mg/dL (7-18); eGFR NON AFRICAN AMERICAN 79 mL/min (90-120)
[2019-12-14 08:08] LABS: CREATININE - SERUM 0.8 mg/dL (0.6-1.3)
[2019-12-14 08:12] LABS: WBC 7.3 10x3/uL (4.8-10.8)
[2019-12-15] VITALS: BP 113/69; BP 120/73
[2019-12-15 04:00] VITALS: BP 123/83
[2019-12-15 04:20] LABS: BASOPHILS 0.5 % (0-2); EOSINOPHILS 3.3 % (0-7); HEMATOCRIT 30.3 % (36.0-48.0); HEMOGLOBIN 9.6 g/dL (12-16); IMMATURE GRANULOCYTES 1.3 % (0-5); LYMPHOCYTES 20.1 % (15-50); MCHC 31.7 g/dL (31.0-37.0); MCV 94.7 fL (80.0-100.0); MEAN PLATELET VOLUME 10.1 fL (7.4-10.4); MONOCYTES 5.8 % (2-11); PLATELET COUNT 465 10x3/uL (130-400); RDW 16.2 % (11.5-14.5); WBC 7.6 10x3/uL (4.8-10.8)
[2019-12-15 04:31] LABS: CALCIUM 8.2 mg/dL (8.5-10.1); CARBON DIOXIDE 28.7 mmol/L (21.0-32.0); CREATININE - SERUM 0.9 mg/dL (0.6-1.3); POTASSIUM - SERUM 3.7 mmol/L (3.5-5.1)
[2019-12-15 09:30] VITALS: BP 107/62
[2019-12-15 13:50] VITALS: BP 105/70
[2019-12-15 17:37] VITALS: BP 121/81
[2019-12-15 20:00] VITALS: BP 103/65
[2019-12-16] VITALS: BP 113/77
[2019-12-16 06:42] LABS: BASOPHILS 0.4 % (0-2); EOSINOPHILS 3.8 % (0-7); HEMATOCRIT 31.4 % (36.0-48.0); HEMOGLOBIN 9.7 g/dL (12-16); IMMATURE GRANULOCYTES 0.7 % (0-5); MCH 29.3 pg (26.0-34.0); MCHC 30.9 g/dL (31.0-37.0); MCV 94.9 fL (80.0-100.0); MONOCYTES 5.3 % (2-11); NEUTROPHILS 64.8 % (40-80); PLATELET COUNT 478 10x3/uL (130-400); RBC 3.31 10x6/uL (4.00-5.40); RDW 16.3 % (11.5-14.5); WBC 7.3 10x3/uL (4.8-10.8)
[2019-12-16 07:08] LABS: CALC OSMOLALITY 280 mosm/kg (275-300); CALCIUM 8.3 mg/dL (8.5-10.1); CARBON DIOXIDE 27.9 mmol/L (21.0-32.0); CHLORIDE - SERUM 106 mmol/L (98-107); GLUCOSE 92 mg/dL (74-106); POTASSIUM - SERUM 3.8 mmol/L (3.5-5.1); SODIUM 141 mmol/L (136-145); UREA NITROGEN 12 mg/dL (7-18)
[2019-12-16 07:11] LABS: CREATININE - SERUM 0.6 mg/dL (0.6-1.3); eGFR NON AFRICAN AMERICAN > 90 mL/min (90-120)
[2019-12-16 08:48] VITALS: BP 116/70
[2019-12-16 13:01] VITALS: BP 110/75
[2019-12-16 16:34] VITALS: BP 113/77
[2019-12-16 19:46] VITALS: BP 119/70
[2019-12-17] VITALS: BP 120/77
[2019-12-17 04:00] VITALS: BP 120/80
[2019-12-17 06:19] LABS: BASOPHILS 0.1 % (0-2); EOSINOPHILS 4.6 % (0-7); HEMATOCRIT 30.6 % (36.0-48.0); HEMOGLOBIN 9.4 g/dL (12-16); LYMPHOCYTES 24.1 % (15-50); MCH 29.1 pg (26.0-34.0); MCHC 30.7 g/dL (31.0-37.0); MCV 94.7 fL (80.0-100.0); MEAN PLATELET VOLUME 9.8 fL (7.4-10.4); MONOCYTES 6.8 % (2-11); NEUTROPHILS 63.4 % (40-80); PLATELET COUNT 448 10x3/uL (130-400); RBC 3.23 10x6/uL (4.00-5.40); RDW 15.9 % (11.5-14.5); WBC 6.9 10x3/uL (4.8-10.8)
[2019-12-17 06:54] LABS: CALC OSMOLALITY 282 mosm/kg (275-300); CALCIUM 8.6 mg/dL (8.5-10.1); CARBON DIOXIDE 25.2 mmol/L (21.0-32.0); CHLORIDE - SERUM 107 mmol/L (98-107); CREATININE - SERUM 0.6 mg/dL (0.6-1.3); GLUCOSE 95 mg/dL (74-106); MAGNESIUM - SERUM 1.8 mg/dL (1.8-2.4); PHOSPHOROUS 4.3 mg/dL (2.5-4.9); POTASSIUM - SERUM 3.7 mmol/L (3.5-5.1); SODIUM 142 mmol/L (136-145); UREA NITROGEN 12 mg/dL (7-18); eGFR NON AFRICAN AMERICAN > 90 mL/min (90-120)
[2019-12-17 07:52] VITALS: BP 113/71
[2019-12-17 11:54] VITALS: BP 96/57
[2019-12-17 16:07] VITALS: BP 104/62
[2019-12-17 20:00] VITALS: BP 111/71
[2019-12-18] VITALS: BP 113/55
[2019-12-18 04:00] VITALS: BP 117/67
[2019-12-18 04:47] LABS: BASOPHILS 0.7 % (0-2); EOSINOPHILS 4.5 % (0-7); HEMATOCRIT 29.1 % (36.0-48.0); IMMATURE GRANULOCYTES 0.6 % (0-5); MCHC 30.9 g/dL (31.0-37.0); MCV 93.9 fL (80.0-100.0); MONOCYTES 7.3 % (2-11); NEUTROPHILS 56.9 % (40-80); PLATELET COUNT 464 10x3/uL (130-400); RDW 15.6 % (11.5-14.5); WBC 6.7 10x3/uL (4.8-10.8)
[2019-12-18 05:03] LABS: CALC OSMOLALITY 270 mosm/kg (275-300); CALCIUM 8.2 mg/dL (8.5-10.1); CARBON DIOXIDE 25.4 mmol/L (21.0-32.0); CHLORIDE - SERUM 103 mmol/L (98-107); CREATININE - SERUM 0.7 mg/dL (0.6-1.3); GLUCOSE 103 mg/dL (74-106); MAGNESIUM - SERUM 1.7 mg/dL (1.8-2.4); PHOSPHOROUS 4.7 mg/dL (2.5-4.9); POTASSIUM - SERUM 3.6 mmol/L (3.5-5.1); SODIUM 136 mmol/L (136-145); UREA NITROGEN 11 mg/dL (7-18); eGFR NON AFRICAN AMERICAN > 90 mL/min (90-120)
[2019-12-18 08:40] VITALS: BP 119/78
--- NOTE | 2019-12-18 11:17 | MORECARE ---
CASE MANAGEMENT DISCHARGE SUMMARY PATIENT: ECHO RINALDI UNIT: [id number] ADM DATE: 11/22/19 AGE: 54 : 67 SEX: F ROOM/BED: D.2202 AUTHOR: SHAHID,DOC PHYSICIAN: REFERRING PHYSICIAN: SHREE DOMÍNGUEZ MD DATE OF SERVICE: 12/18/19 Discharge Plan Patient Name: ECHO RINALDI Facility: [facility]:[place] : 1965 Planned Disposition: Anticipated Discharge Date: Discharge Date: Expected LOS: Initial Reviewer: [email or web address] Initial Review Date: 11/24/2019 Generated: 12/18/19 12:16 pm Comments DCP- Discharge Planning Updated by [email or web address]: Rosibel Aquino on 12/07/19 6:[address] CM checked with Glynn in [employer] to see if patient's Medicaid has went through processing yet. He stated that it hasn't yet but hopefully any day. CM will continue to follow this status to help with discharge planning / needs. DCP- Discharge Planning Updated by [email or web address]: Maryanne Vogt on 11/24/19 3:[address] Patient Name: ECHO RINALDI Admission Status: Elective Accout number: [id number] Admission Date: 11-22-2019 : 1965 Admission Diagnosis: Attending: SHREE DOMÍNGUEZ Current LOS: 2 Anticipated DC Date: Planned Disposition: Primary Insurance: MEDICAID [place] PENDING Discharge Planning Comments: CM MET WITH PATIENT AFTER OBTAINING VERBAL CONSENT. PATIENT PLANS TO DC TO HOME WHEN BETTER. STATES NO EQUIPMENT AT HOME. SHE HAS A CHEST TUBE AND IS ON O2 AT THIS TIME. MAY NEED WALK TEST PRIOR TO DC. UNSURE OF DC NEEDS AT THIS TIME. Passenger Car Inspector: Maryanne Vogt DCPIA - Discharge Planning Initial Assessment Updated by [email or web address]: Maryanne Vogt on 11/24/19 4:06 pm * Is the patient Alert and Oriented? Yes * PCP NONE * Pharmacy [facility] * Preadmission Environment Home with Family * ADLs Independent * Additional services required to return to the preadmission environment? Yes * Can the patient safely return to the preadmission environment? Yes * Has this patient been hospitalized within the prior 30 days at any hospital? No External Providers External Provider: [facility] Next Contact Date: Service Request Date: Service Type: Resolution: Reviewer: Comments: Last DP export: 12/07/19 6:58 p Patient Name: ECHO RINALDI Page 14603 at 1117 All edits/amendments must be made on the electronic document DICTATION DATE: 12/18/19 1116 DATA WAREHOUSING MANAGER: CARMELINA 12/18/19 1116 RPT#: [id number] DC DATE: STATUS: ADM IN [facility] [address] [place] [address] END OF REPORT
--- NOTE | 2019-12-18 11:25 | MORECARE ---
CASE MANAGEMENT DISCHARGE SUMMARY PATIENT: ECHO RINALDI UNIT: [id number] ADM DATE: 11/22/19 AGE: 54 : 67 SEX: F ROOM/BED: D.2202 AUTHOR: SHAHID,DOC PHYSICIAN: REFERRING PHYSICIAN: SHREE DOMÍNGUEZ MD DATE OF SERVICE: 12/18/19 Discharge Plan Patient Name: ECHO RINALDI Facility: [facility]:[place] : 1965 Planned Disposition: Anticipated Discharge Date: Discharge Date: Expected LOS: Initial Reviewer: [email or web address] Initial Review Date: 11/24/2019 Generated: 12/18/19 12:24 pm Comments DCP- Discharge Planning Updated by [email or web address]: Malou Rico on 12/18/19 10:[address] RAY WITH [facility] SAID THAT THEY WOULD LOOK TO SEE IF THEY COULD TAKE THE PATIENT BEING FLOYD PENDING. I HAVE SENT THE REFRRAL OVER TO HIM. I ALSO CALLED NANI IN [employer] AND HE THOUGHT HER FLOYD IS ACTIVE OF NOW DCP- Discharge Planning Updated by [email or web address]: Rosibel Aquino on 12/07/19 6:[address] CM checked with Nani in [employer] to see if patient's Medicaid has went through processing yet. He stated that it hasn't yet but hopefully any day. CM will continue to follow this status to help with discharge planning / needs. DCP- Discharge Planning Updated by [email or web address]: Maryanne Vogt on 11/24/19 3:[address] Patient Name: ECHO RINALDI Admission Status: Elective Accout number: [id number] Admission Date: 11-22-2019 : 1965 Admission Diagnosis: Attending: SHREE DOMÍNGUEZ Current LOS: 2 Anticipated DC Date: Planned Disposition: Primary Insurance: MEDICAID [place] PENDING Discharge Planning Comments: CM MET WITH PATIENT AFTER OBTAINING VERBAL CONSENT. PATIENT PLANS TO DC TO HOME WHEN BETTER. STATES NO EQUIPMENT AT HOME. SHE HAS A CHEST TUBE AND IS ON O2 AT THIS TIME. MAY NEED WALK TEST PRIOR TO DC. UNSURE OF DC NEEDS AT THIS TIME. Development Specialist: Maryanne Vogt DCPIA - Discharge Planning Initial Assessment Updated by [id number]: Maryanne Vogt on 11/24/19 4:06 pm * Is the patient Alert and Oriented? Yes * PCP NONE * Pharmacy [facility] * Preadmission Environment Home with Family * ADLs Independent * Additional services required to return to the preadmission environment? Yes * Can the patient safely return to the preadmission environment? Yes * Has this patient been hospitalized within the prior 30 days at any hospital? No Last DP export: 12/18/19 10:17 am Patient Name: ECHO RINALDI Page 15008 at 1125 All edits/amendments must be made on the electronic document DICTATION DATE: 12/18/19 112 BUSINESS PROCESS MODELER: CARMELINA 12/18/19 1124 RPT#: [id number] DC DATE: STATUS: ADM IN [facility] [address] [place] [address] END OF REPORT
[2019-12-18 12:12] VITALS: BP 131/72
--- NOTE | 2019-12-18 14:48 | MORECARE ---
CASE MANAGEMENT DISCHARGE SUMMARY PATIENT: ECHO RINALDI UNIT: [id number] ADM DATE: 11/22/19 AGE: 54 : 67 SEX: F ROOM/BED: D.2202 AUTHOR: SHAHID,DOC PHYSICIAN: REFERRING PHYSICIAN: SHREE DOMÍNGUEZ MD DATE OF SERVICE: 12/18/19 Discharge Plan Patient Name: ECHO RINALDI Facility: [facility]:[place] : 1965 Planned Disposition: Anticipated Discharge Date: Discharge Date: Expected LOS: Initial Reviewer: [id number] Initial Review Date: 11/24/2019 Generated: 12/18/19 3:47 pm Comments DCP- Discharge Planning Updated by [email or web address]: Malou Rico on 12/18/19 1:[address] SPOKE WITH PATIENT ABOUT DISCHARGE PLANNING NEEDS. HER FLOYD IS ACTIVE, BUT SHE DOES NOT HAVE A PCP. [facility] ([place] [phone]) NEEDS A PHYSICAL ADDRESS. THE ADDRESS THE PATIENT GAVE ME WAS, WHICH WAS ANASTASIA'S ADDRESS (FRIEND) [address] [place] [id number] SHE DOES NOT HAVE ANY MINUTES ON HER PHONE SO SHE GAVE ME HER SISTER'S NUMBER [phone] (ERASMO) SHE STATED THAT SHE WOULD BE STAYING AT HER BROTHERS (ALEJANDRO'S) HOME. SHE DID NOT KNOW HIS ADDRESS OR HIS NUMBER, BUT HE WOULD BE THE ONE TO PICK HER UP. I WILL ATTEMPT TO TRY TO FIND HER A PCP IN THE [place] ARE[place]. CM TO CONTINUE TO FOLLOW AND ASSIST NEEDED DCP- Discharge Planning Updated by [email or web address]: Malou Rico on 12/18/19 10:[address] RAY WITH [employer] [facility] SAID THAT THEY WOULD LOOK TO SEE IF THEY COULD TAKE THE PATIENT BEING FLOYD PENDING. I HAVE SENT THE REFRRAL OVER TO HIM. I ALSO CALLED NANI IN [employer] AND HE THOUGHT HER FLOYD IS ACTIVE OF NOW DCP- Discharge Planning Updated by [email or web address]: Rosibel Aquino on 12/07/19 6:[address] CM checked with Nani in [employer] to see if patient's Medicaid has went through processing yet. He stated that it hasn't yet but hopefully any day. CM will continue to follow this status to help with discharge planning / needs. DCP- Discharge Planning Updated by [email or web address]: Maryanne Vogt on 11/24/19 3:[address] Patient Name: ECHO RINALDI Admission Status: Elective Accout number: [id number] Admission Date: 11-22-2019 : 1965 Admission Diagnosis: Attending: SHREE DOMÍNGUEZ Current LOS: 2 Anticipated DC Date: Planned Disposition: Primary Insurance: MEDICAID [place] PENDING Discharge Planning Comments: CM MET WITH PATIENT AFTER OBTAINING VERBAL CONSENT. PATIENT PLANS TO DC TO HOME WHEN BETTER. STATES NO EQUIPMENT AT HOME. SHE HAS A CHEST TUBE AND IS ON O2 AT THIS TIME. MAY NEED WALK TEST PRIOR TO DC. UNSURE OF DC NEEDS AT THIS TIME. Talent Program Manager: Maryanne Torie DCPIA - Discharge Planning Initial Assessment Updated by [id number]: Maryanne Vogt on 11/24/19 4:06 pm * Is the patient Alert and Oriented? Yes * PCP NONE * Pharmacy [facility] * Preadmission Environment Home with Family * ADLs Independent * Additional services required to return to the preadmission environment? Yes * Can the patient safely return to the preadmission environment? Yes * Has this patient been hospitalized within the prior 30 days at any hospital? No Last DP export: 12/18/19 10:25 am Patient Name: ECHO RINALDI Page 99955 at 1448 All edits/amendments must be made on the electronic document DICTATION DATE: 12/18/19 1447 SALES MANAGER [place]: CARMELINA 12/18/19 1447 RPT#: [id number] DC DATE: STATUS: ADM IN [facility] [address] [place] [address] END OF REPORT
--- NOTE | 2019-12-18 15:24 | MORECARE ---
CASE MANAGEMENT DISCHARGE SUMMARY PATIENT: ECHO RINALDI UNIT: [id number] ADM DATE: 11/22/19 AGE: 54 : 67 SEX: F ROOM/BED: D.2202 AUTHOR: SHAHID,DOC PHYSICIAN: REFERRING PHYSICIAN: SHREE DOMÍNGUEZ MD DATE OF SERVICE: 12/18/19 Discharge Plan Patient Name: ECHO RINALDI Facility: [facility]:[place] : 1965 Planned Disposition: Anticipated Discharge Date: Discharge Date: Expected LOS: Initial Reviewer: [email or web address] Initial Review Date: 11/24/2019 Generated: 12/18/19 4:24 pm Comments DCP- Discharge Planning Updated by [id number]: Malou Rico on 12/18/19 2:[address] SPOKE WITH [facility] [phone] TRYING TO GET A PCP FOR THE PATIENT. THEY ARE ACCEPTING FLOYD PATIENT'S, BUT THEY WILL HAVE TO BE SCREENED TO SEE IF THEY WERE GOING TO ACCEPT HER [facility] FOLLOW UP APPOINTMENT FOR WedDecember @ 3:00 PM. I WILL FAX CLINICALS TO [phone] BONNIE HICKEY. I SPOKE WITH HER ABOUT THE PATIENT. DR STEVE IS THE PCP. CM WILL FAX ALL CLINICALS TO THE OFFICE DCP- Discharge Planning Updated by [email or web address]: Malou Rico on 12/18/19 1:[address] SPOKE WITH PATIENT ABOUT DISCHARGE PLANNING NEEDS. HER FLOYD IS ACTIVE, BUT SHE DOES NOT HAVE A PCP. [facility] ([place] [phone]) NEEDS A PHYSICAL ADDRESS. THE ADDRESS THE PATIENT GAVE ME WAS, WHICH WAS ANASTASIA'S ADDRESS (FRIEND) [address] [facility] [address] SHE DOES NOT HAVE ANY MINUTES ON HER PHONE SO SHE GAVE ME HER SISTER'S NUMBER [phone] (ERASMO) SHE STATED THAT SHE WOULD BE STAYING AT HER BROTHERS (ALEJANDRO'S) HOME. SHE DID NOT KNOW HIS ADDRESS OR HIS NUMBER, BUT HE WOULD BE THE ONE TO PICK HER UP. I WILL ATTEMPT TO TRY TO FIND HER A PCP IN THE [place]. CM TO CONTINUE TO FOLLOW AND ASSIST NEEDED DCP- Discharge Planning Updated by [email or web address]: Malou Trisha on 12/18/19 10:[address] RAY WITH [facility] SAID THAT THEY WOULD LOOK TO SEE IF THEY COULD TAKE THE PATIENT BEING FLOYD PENDING. I HAVE SENT THE REFRRAL OVER TO HIM. I ALSO CALLED NANI IN [employer] AND HE THOUGHT HER FLOYD IS ACTIVE OF NOW DCP- Discharge Planning Updated by [id number]: Rosibel Miles on 12/07/19 6:[address] CM checked with Nani in [employer] to see if patient's Medicaid has went through processing yet. He stated that it hasn't yet but hopefully any day. CM will continue to follow this status to help with discharge planning / needs. DCP- Discharge Planning Updated by [email or web address]: Maryannebryanna Vogt on 11/24/19 3:[address] Patient Name: ECHO RINALDI Admission Status: Elective Accout number: [id number] Admission Date: 11-22-2019 : 1965 Admission Diagnosis: Attending: SHREE DOMÍNGUEZ Current LOS: 2 Anticipated DC Date: Planned Disposition: Primary Insurance: MEDICAID [place] PENDING Discharge Planning Comments: CM MET WITH PATIENT AFTER OBTAINING VERBAL CONSENT. PATIENT PLANS TO DC TO HOME WHEN BETTER. STATES NO EQUIPMENT AT HOME. SHE HAS A CHEST TUBE AND IS ON O2 AT THIS TIME. MAY NEED WALK TEST PRIOR TO DC. UNSURE OF DC NEEDS AT THIS TIME. Warehouse Supervisor 3Rd Shift: Maryanne Vogt DCPIA - Discharge Planning Initial Assessment Updated by [email or web address]: Maryanne Torie on 11/24/19 4:06 pm * Is the patient Alert and Oriented? Yes * PCP NONE * Pharmacy [facility] * Preadmission Environment Home with Family * ADLs Independent * Additional services required to return to the preadmission environment? Yes * Can the patient safely return to the preadmission environment? Yes * Has this patient been hospitalized within the prior 30 days at any hospital? No Last DP export: 12/18/19 1:48 pm Patient Name: ECHO RINALDI Page 17506 at 1524 All edits/amendments must be made on the electronic document DICTATION DATE: 12/18/19 1524 FLAT BED OPERATOR: CARMELINA 12/18/19 1524 RPT#: [id number] DC DATE: STATUS: ADM IN [facility] [address] [place] [address] END OF REPORT
[2019-12-18 16:01] VITALS: BP 126/65
[2019-12-18 20:00] VITALS: BP 117/68
[2019-12-19] VITALS: BP 121/72
[2019-12-19 04:00] VITALS: BP 107/77
[2019-12-19 05:34] LABS: BASOPHILS 0.6 % (0-2); EOSINOPHILS 5.4 % (0-7); HEMATOCRIT 29.8 % (36.0-48.0); HEMOGLOBIN 9.3 g/dL (12-16); IMMATURE GRANULOCYTES 0.8 % (0-5); LYMPHOCYTES 31.1 % (15-50); MCH 29.2 pg (26.0-34.0); MCHC 31.2 g/dL (31.0-37.0); MCV 93.4 fL (80.0-100.0); MEAN PLATELET VOLUME 10.2 fL (7.4-10.4); MONOCYTES 8.1 % (2-11); PLATELET COUNT 470 10x3/uL (130-400); RBC 3.19 10x6/uL (4.00-5.40); RDW 15.1 % (11.5-14.5); WBC 6.3 10x3/uL (4.8-10.8)
[2019-12-19 06:17] LABS: CALC OSMOLALITY 272 mosm/kg (275-300); CALCIUM 8.6 mg/dL (8.5-10.1); CARBON DIOXIDE 26.3 mmol/L (21.0-32.0); CHLORIDE - SERUM 103 mmol/L (98-107); CREATININE - SERUM 0.7 mg/dL (0.6-1.3); GLUCOSE 93 mg/dL (74-106); MAGNESIUM - SERUM 1.8 mg/dL (1.8-2.4); POTASSIUM - SERUM 4.1 mmol/L (3.5-5.1); SODIUM 137 mmol/L (136-145); UREA NITROGEN 9 mg/dL (7-18); eGFR NON AFRICAN AMERICAN > 90 mL/min (90-120)
[2019-12-19 09:11] VITALS: BP 117/70
--- NOTE | 2019-12-19 10:13 | MORECARE ---
CASE MANAGEMENT DISCHARGE SUMMARY PATIENT: ECHO RINALDI UNIT: [id number] ADM DATE: 11/22/19 AGE: 54 : 67 SEX: F ROOM/BED: D.2202 AUTHOR: SHAHID,DOC PHYSICIAN: REFERRING PHYSICIAN: SHREE DOMÍNGUEZ MD DATE OF SERVICE: 12/19/19 Discharge Plan Patient Name: ECHO RINALDI Facility: [facility]:[place] : 1965 Planned Disposition: Anticipated Discharge Date: Discharge Date: Expected LOS: Initial Reviewer: [id number] Initial Review Date: 11/24/2019 Generated: 12/19/19 11:13 am Comments DCP- Discharge Planning Updated by [id number]: Malou Rico on 12/18/19 2:[address] SPOKE WITH [facility] [phone] TRYING TO GET A PCP FOR THE PATIENT. THEY ARE ACCEPTING FLOYD PATIENT'S, BUT THEY WILL HAVE TO BE SCREENED TO SEE IF THEY WERE GOING TO ACCEPT HER [facility] APPOINTMENT FOR WedDecember @ 3:00 PM. I WILL FAX CLINICALS TO [phone] BONNIE HICKEY. I SPOKE WITH HER ABOUT THE PATIENT. DR STEVE IS THE PCP. CM WILL FAX ALL CLINICALS TO THE OFFICE DCP- Discharge Planning Updated by [id number]: Malou Rico on 12/18/19 1:[address] SPOKE WITH PATIENT ABOUT DISCHARGE PLANNING NEEDS. HER FLOYD IS ACTIVE, BUT SHE DOES NOT HAVE A PCP. [employer] ([place] [phone]) NEEDS A PHYSICAL ADDRESS. THE ADDRESS THE PATIENT GAVE ME WAS, WHICH WAS ANASTASIA'S ADDRESS (FRIEND) [address] [address] SHE DOES NOT HAVE ANY MINUTES ON HER PHONE SO SHE GAVE ME HER SISTER'S NUMBER [phone] (ERASMO) SHE STATED THAT SHE WOULD BE STAYING AT HER BROTHERS (ALEJANDRO'S) HOME. SHE DID NOT KNOW HIS ADDRESS OR HIS NUMBER, BUT HE WOULD BE THE ONE TO PICK HER UP. I WILL ATTEMPT TO TRY TO FIND HER A PCP IN THE [place] AREA. CM TO CONTINUE TO FOLLOW AND ASSIST NEEDED DCP- Discharge Planning Updated by [id number]: Malou Trisha on 12/18/19 10:[address] RAY WITH [employer] SAID THAT THEY WOULD LOOK TO SEE IF THEY COULD TAKE THE PATIENT BEING FLOYD PENDING. I HAVE SENT THE REFRRAL OVER TO HIM. I ALSO CALLED NANI IN [employer] AND HE THOUGHT HER FLOYD IS ACTIVE OF NOW DCP- Discharge Planning Updated by [email or web address]: Rosibel Miles on 12/07/19 6:[address] CM checked with Nani in [employer] to see if patient's Medicaid has went through processing yet. He stated that it hasn't yet but hopefully any day. CM will continue to follow this status to help with discharge planning / needs. DCP- Discharge Planning Updated by [email or web address]: Maryanne Torie on 11/24/19 3:[address] Patient Name: ECHO RINALDI Admission Status: Elective Accout number: [id number] Admission Date: 11-22-2019 : 1965 Admission Diagnosis: Attending: SHREE DOMÍNGUEZ Current LOS: 2 Anticipated DC Date: Planned Disposition: Primary Insurance: MEDICAID [place] PENDING Discharge Planning Comments: CM MET WITH PATIENT AFTER OBTAINING VERBAL CONSENT. PATIENT PLANS TO DC TO HOME WHEN BETTER. STATES NO EQUIPMENT AT HOME. SHE HAS A CHEST TUBE AND IS ON O2 AT THIS TIME. MAY NEED WALK TEST PRIOR TO DC. UNSURE OF DC NEEDS AT THIS TIME. X Ray Equipment Mechanic: Maryanne Vogt DCPIA - Discharge Planning Initial Assessment Updated by [email or web address]: Maryanne Vogt on 11/24/19 4:06 pm * Is the patient Alert and Oriented? Yes * PCP NONE * Pharmacy [facility] * Preadmission Environment Home with Family * ADLs Independent * Additional services required to return to the preadmission environment? Yes * Can the patient safely return to the preadmission environment? Yes * Has this patient been hospitalized within the prior 30 days at any hospital? No External Providers External Provider: OTHER-OTHER Next Contact Date: Service Request Date: Service Type: Resolution: Reviewer: Comments: Last DP export: 12/18/19 2:24 pm Patient Name: ECHO RINALDI Page [phone] at 1013 All edits/amendments must be made on the electronic document DICTATION DATE: 12/19/19 1013 SENIOR ASSISTANT MANAGER: CARMELINA 12/19/19 1013 RPT#: [id number] DC DATE: STATUS: ADM IN [facility] [address] [place] [address] END OF REPORT
[2019-12-19 13:31] VITALS: BP 119/71
[2019-12-19] MEDS ORDERED: ALBUTEROL2.5 MG/3 M INH (15:34)
[2019-12-19] MEDS ORDERED: ABILIFY10 MG PO (15:34)
[2019-12-19] MEDS ORDERED: SINGULAIR10 MG PO (15:35)
[2019-12-19] MEDS ORDERED: TESSALON PERLE100 MG PO (15:35)
[2019-12-19] MEDS ORDERED: LEXAPRO10 MG PO (15:35)
[2019-12-19] MEDS ORDERED: MUCINEX600 MG PO (15:36)
[2019-12-19] MEDS ORDERED: FLUTICASONE PRO16 GM NASAL (15:36)
[2019-12-19] MEDS ORDERED: FLORAJEN3 CAPS460 MG PO (15:37)
[2019-12-19] MEDS ORDERED: PROTONIX40 MG PO (15:37)
[2019-12-19] MEDS ORDERED: LIDODERM 5 %1 PATCH TRANSDERM (15:37)
[2019-12-19] MEDS ORDERED: HYDROCODON-ACE1 EAC7 PO ×2 (15:38→15:39)
[2019-12-19] MEDS ORDERED: ATIVAN0.5 MG PO ×2 (15:38→15:39)
[2019-12-19] MEDS ORDERED: Nicoderm [PBKC] TRANSDERM (15:38)
--- NOTE | 2019-12-19 15:42 | MORECARE ---
CASE MANAGEMENT DISCHARGE SUMMARY PATIENT: ECHO RINALDI UNIT: [id number] ADM DATE: 11/22/19 AGE: 54 : 67 SEX: F ROOM/BED: D.2202 AUTHOR: SHAHID,DOC PHYSICIAN: REFERRING PHYSICIAN: SHREE DOMÍNGUEZ MD DATE OF SERVICE: 12/19/19 Discharge Plan Patient Name: ECHO RINALDI Facility: [facility]:[place] : 1965 Planned Disposition: Anticipated Discharge Date: Discharge Date: Expected LOS: Initial Reviewer: [id number] Initial Review Date: 11/24/2019 Generated: 12/19/19 4:42 pm Comments DCP- Discharge Planning Updated by [id number]: Malou Rico on 12/18/19 2:[address] SPOKE WITH [facility] [phone] TRYING TO GET A PCP FOR THE PATIENT. THEY ARE ACCEPTING FLOYD PATIENT'S, BUT THEY WILL HAVE TO BE SCREENED TO SEE IF THEY WERE GOING TO ACCEPT HER [facility] APPOINTMENT FOR WedDecember @ 3:00 PM. I WILL FAX CLINICALS TO [phone] BONNIE HICKEY. I SPOKE WITH HER ABOUT THE PATIENT. DR STEVE IS THE PCP. CM WILL FAX ALL CLINICALS TO THE OFFICE DCP- Discharge Planning Updated by [id number]: Malou Rico on 12/18/19 1:[address] SPOKE WITH PATIENT ABOUT DISCHARGE PLANNING NEEDS. HER FLOYD IS ACTIVE, BUT SHE DOES NOT HAVE A PCP. [employer] ([place] [phone]) NEEDS A PHYSICAL ADDRESS. THE ADDRESS THE PATIENT GAVE ME WAS, WHICH WAS ANASTASIA'S ADDRESS (FRIEND) [address] [address] SHE DOES NOT HAVE ANY MINUTES ON HER PHONE SO SHE GAVE ME HER SISTER'S NUMBER [phone] (ERASMO) SHE STATED THAT SHE WOULD BE STAYING AT HER BROTHERS (ALEJANDRO'S) HOME. SHE DID NOT KNOW HIS ADDRESS OR HIS NUMBER, BUT HE WOULD BE THE ONE TO PICK HER UP. I WILL ATTEMPT TO TRY TO FIND HER A PCP IN THE [place] AREA. CM TO CONTINUE TO FOLLOW AND ASSIST NEEDED DCP- Discharge Planning Updated by [id number]: Malou Trisha on 12/18/19 10:[address] RAY WITH [employer] SAID THAT THEY WOULD LOOK TO SEE IF THEY COULD TAKE THE PATIENT BEING FLOYD PENDING. I HAVE SENT THE REFRRAL OVER TO HIM. I ALSO CALLED NANI IN [employer] AND HE THOUGHT HER FLOYD IS ACTIVE OF NOW DCP- Discharge Planning Updated by [email or web address]: Rsoibel Miles on 12/07/19 6:[address] CM checked with Nani in [employer] to see if patient's Medicaid has went through processing yet. He stated that it hasn't yet but hopefully any day. CM will continue to follow this status to help with discharge planning / needs. DCP- Discharge Planning Updated by [id number]: Maryannebryanna Vogt on 11/24/19 3:[address] Patient Name: ECHO RINALDI Admission Status: Elective Accout number: [id number] Admission Date: 11-22-2019 : 1965 Admission Diagnosis: Attending: SHREE DOMÍNGUEZ Current LOS: 2 Anticipated DC Date: Planned Disposition: Primary Insurance: MEDICAID [place] PENDING Discharge Planning Comments: CM MET WITH PATIENT AFTER OBTAINING VERBAL CONSENT. PATIENT PLANS TO DC TO HOME WHEN BETTER. STATES NO EQUIPMENT AT HOME. SHE HAS A CHEST TUBE AND IS ON O2 AT THIS TIME. MAY NEED WALK TEST PRIOR TO DC. UNSURE OF DC NEEDS AT THIS TIME. Gunner'S Mate G: Maryanne Vogt DCPIA - Discharge Planning Initial Assessment Updated by [id number]: Maryanne Torie on 11/24/19 4:06 pm * Is the patient Alert and Oriented? Yes * PCP NONE * Pharmacy [facility] * Preadmission Environment Home with Family * ADLs Independent * Additional services required to return to the preadmission environment? Yes * Can the patient safely return to the preadmission environment? Yes * Has this patient been hospitalized within the prior 30 days at any hospital? No Last DP export: 12/19/19 9:13 am Patient Name: ECHO RINALDI Page 54801 at 1542 All edits/amendments must be made on the electronic document DICTATION DATE: 12/19/19 1542 TREASURY DIRECTOR: CARMELINA 12/19/19 1542 RPT#: [id number] DC DATE: STATUS: ADM IN [facility] [address] [place] [address] END OF REPORT
--- NOTE | 2019-12-19 15:50 | MORECARE ---
CASE MANAGEMENT DISCHARGE SUMMARY PATIENT: ECHO RINALDI UNIT: [id number] ADM DATE: 11/22/19 AGE: 54 : 67 SEX: F ROOM/BED: D.2202 AUTHOR: SHAHID,DOC PHYSICIAN: REFERRING PHYSICIAN: SHREE DOMÍNGUEZ MD DATE OF SERVICE: 12/19/19 Discharge Plan Patient Name: ECHO RINALDI Facility: [facility]:[place] : 1965 Planned Disposition: Home with Home Health Anticipated Discharge Date: Discharge Date: Expected LOS: Initial Reviewer: [id number] Initial Review Date: 11/24/2019 Generated: 12/19/19 4:50 pm Comments DCP- Discharge Planning Updated by [id number]: Malou Rico on 12/19/19 2:[address] PATIENT WILL BE DISCHARGING HOME TO HER BROTHERS HOUSE AT [address] [place] [address] IN [place], HER BROTHER ALEJANDRO'S NUMBER IS [phone] LINSEY HER BROTHER'S SIGNIFICANT OTHER IS HERE TO TAKE HER HOME WITH HER AND HAS BEEN EXPLAINED THE APPOINTMENTS AND URGENCY TO KEEP THESE APPOINTMENTS. I HAVE SPOKEN WITH RUPERTO AT DR STEVE'S OFFICE TO LET HER KNOW ABOUT DISCHARGE. DR TSE HAS AGREED TO FOLLOW THE CHEST TUBE & HOME HEALTH ORDERS AT [facility] IN [place]. I HAVE CALLED HARVEY AT [facility] TO LET HER KNOW THE ABOVE. I WILL FAX ALL CLINICALS TO [facility] AND DR STEVE'S OFFICE. CM TO FOLLOW AND ASSIST WITH DC PLANNING NEEDED DCP- Discharge Planning Updated by [id number]: Malou Rico on 12/18/19 2:[address] SPOKE WITH [facility] [phone] TRYING TO GET A PCP FOR THE PATIENT. THEY ARE ACCEPTING FLOYD PATIENT'S, BUT THEY WILL HAVE TO BE SCREENED TO SEE IF THEY WERE GOING TO ACCEPT HER [facility] APPOINTMENT FOR WedDecember @ 3:00 PM. I WILL FAX CLINICALS TO [phone] BONNIE HICKEY. I SPOKE WITH HER ABOUT THE PATIENT. DR STEVE IS THE PCP. CM WILL FAX ALL CLINICALS TO THE OFFICE DCP- Discharge Planning Updated by [id number]: Malou Rico on 12/18/19 1:[address] SPOKE WITH PATIENT ABOUT DISCHARGE PLANNING NEEDS. HER FLOYD IS ACTIVE, BUT SHE DOES NOT HAVE A PCP. [employer] ([place] [phone]) NEEDS A PHYSICAL ADDRESS. THE ADDRESS THE PATIENT GAVE ME WAS, WHICH WAS ANASTASIA'S ADDRESS (FRIEND) [address] [place] [address] SHE DOES NOT HAVE ANY MINUTES ON HER PHONE SO SHE GAVE ME HER SISTER'S NUMBER [phone] (ERASMO) SHE STATED THAT SHE WOULD BE STAYING AT HER BROTHERS (ALEJANDRO'S) HOME. SHE DID NOT KNOW HIS ADDRESS OR HIS NUMBER, BUT HE WOULD BE THE ONE TO PICK HER UP. I WILL ATTEMPT TO TRY TO FIND HER A PCP IN THE [place] AREA. CM TO CONTINUE TO FOLLOW AND ASSIST NEEDED DCP- Discharge Planning Updated by [email or web address]: Malou Rico on 12/18/19 10:[address] RAY WITH [employer] [facility] SAID THAT THEY WOULD LOOK TO SEE IF THEY COULD TAKE THE PATIENT BEING FLOYD PENDING. I HAVE SENT THE REFRRAL OVER TO HIM. I ALSO CALLED NANI IN [employer] AND HE THOUGHT HER FLOYD IS ACTIVE OF NOW DCP- Discharge Planning Updated by [id number]: Rosibel Aqunio on 12/07/19 6:[address] CM checked with Nani in [employer] to see if patient's Medicaid has went through processing yet. He stated that it hasn't yet but hopefully any day. CM will continue to follow this status to help with discharge planning / needs. DCP- Discharge Planning Updated by [email or web address]: Maryanne Vogt on 11/24/19 3:[address] Patient Name: ECHO RINALDI Admission Status: Elective Accout number: [id number] Admission Date: 11-22-2019 : 1965 Admission Diagnosis: Attending: SHREE DOMÍNGUEZ Current LOS: 2 Anticipated DC Date: Planned Disposition: Primary Insurance: MEDICAID [place] PENDING Discharge Planning Comments: CM MET WITH PATIENT AFTER OBTAINING VERBAL CONSENT. PATIENT PLANS TO DC TO HOME WHEN BETTER. STATES NO EQUIPMENT AT HOME. SHE HAS A CHEST TUBE AND IS ON O2 AT THIS TIME. MAY NEED WALK TEST PRIOR TO DC. UNSURE OF DC NEEDS AT THIS TIME. Oracle Application Architect: Maryanne Vogt DCPIA - Discharge Planning Initial Assessment Updated by [id number]: Maryanne Vogt on 11/24/19 4:06 pm * Is the patient Alert and Oriented? Yes * PCP NONE * Pharmacy [facility] * Preadmission Environment Home with Family * ADLs Independent * Additional services required to return to the preadmission environment? Yes * Can the patient safely return to the preadmission environment? Yes * Has this patient been hospitalized within the prior 30 days at any hospital? No Last DP export: 12/19/19 2:42 pm Patient Name: ECHO RINALDI Page 18897 at 1550 All edits/amendments must be made on the electronic document DICTATION DATE: 12/19/19 1550 CARTRIDGE FEEDER: CARMELINA 12/19/19 1550 RPT#: [id number] DC DATE: STATUS: ADM IN [facility] [address] [place] [address] END OF REPORT
--- NOTE | 2019-12-19 17:32 | MORECARE ---
CASE MANAGEMENT DISCHARGE SUMMARY PATIENT: ECHO RINALDI UNIT: [id number] ADM DATE: 11/22/19 AGE: 54 : 67 SEX: F ROOM/BED: D.2202 AUTHOR: SHAHID,DOC PHYSICIAN: REFERRING PHYSICIAN: SHREE DOMÍNGUEZ MD DATE OF SERVICE: 12/19/19 Discharge Plan Patient Name: ECHO RINALDI Facility: [facility]:[place] : 1965 Planned Disposition: Home with Home Health Anticipated Discharge Date: Discharge Date: Expected LOS: Initial Reviewer: [id number] Initial Review Date: 11/24/2019 Generated: 12/19/19 6:32 pm Comments DCP- Discharge Planning Updated by [id number]: Malou Rico on 12/19/19 2:[address] PATIENT WILL BE DISCHARGING HOME TO HER BROTHERS HOUSE AT [address] [place] [address] IN [place], HER BROTHER ALEJANDRO'S NUMBER IS [phone] LINSEY HER BROTHER'S SIGNIFICANT OTHER IS HERE TO TAKE HER HOME WITH HER AND HAS BEEN EXPLAINED THE APPOINTMENTS AND URGENCY TO KEEP THESE APPOINTMENTS. I HAVE SPOKEN WITH RUPERTO AT DR STEVE'S OFFICE TO LET HER KNOW ABOUT DISCHARGE. DR TSE HAS AGREED TO FOLLOW THE CHEST TUBE & HOME HEALTH ORDERS AT [facility] IN [place]. I HAVE CALLED HARVEY AT [facility] TO LET HER KNOW THE ABOVE. I WILL FAX ALL CLINICALS TO [facility] AND DR STEVE'S OFFICE. CM TO FOLLOW AND ASSIST WITH DC PLANNING NEEDED DCP- Discharge Planning Updated by [id number]: Malou Rico on 12/18/19 2:[address] SPOKE WITH [facility] [phone] TRYING TO GET A PCP FOR THE PATIENT. THEY ARE ACCEPTING FLOYD PATIENT'S, BUT THEY WILL HAVE TO BE SCREENED TO SEE IF THEY WERE GOING TO ACCEPT HER [facility] APPOINTMENT FOR WedDecember @ 3:00 PM. I WILL FAX CLINICALS TO [phone] BONNIE HICKEY. I SPOKE WITH HER ABOUT THE PATIENT. DR STEVE IS THE PCP. CM WILL FAX ALL CLINICALS TO THE OFFICE DCP- Discharge Planning Updated by [id number]: Malou Rico on 12/18/19 1:[address] SPOKE WITH PATIENT ABOUT DISCHARGE PLANNING NEEDS. HER FLOYD IS ACTIVE, BUT SHE DOES NOT HAVE A PCP. [employer] ([place] [phone]) NEEDS A PHYSICAL ADDRESS. THE ADDRESS THE PATIENT GAVE ME WAS, WHICH WAS ANASTASIA'S ADDRESS (FRIEND) [address] [place] [address] SHE DOES NOT HAVE ANY MINUTES ON HER PHONE SO SHE GAVE ME HER SISTER'S NUMBER [phone] (ERASMO) SHE STATED THAT SHE WOULD BE STAYING AT HER BROTHERS (ALEJANDRO'S) HOME. SHE DID NOT KNOW HIS ADDRESS OR HIS NUMBER, BUT HE WOULD BE THE ONE TO PICK HER UP. I WILL ATTEMPT TO TRY TO FIND HER A PCP IN THE [place] AREA. CM TO CONTINUE TO FOLLOW AND ASSIST NEEDED DCP- Discharge Planning Updated by [id number]: Malou Rico on 12/18/19 10:[address] RAY WITH [employer] [facility] SAID THAT THEY WOULD LOOK TO SEE IF THEY COULD TAKE THE PATIENT BEING FLOYD PENDING. I HAVE SENT THE REFRRAL OVER TO HIM. I ALSO CALLED NANI IN [employer] AND HE THOUGHT HER FLOYD IS ACTIVE OF NOW DCP- Discharge Planning Updated by [email or web address]: Rosibel Aquino on 12/07/19 6:[address] CM checked with Nani in [employer] to see if patient's Medicaid has went through processing yet. He stated that it hasn't yet but hopefully any day. CM will continue to follow this status to help with discharge planning / needs. DCP- Discharge Planning Updated by [id number]: Maryanne Vogt on 11/24/19 3:[address] Patient Name: ECHO RINALDI Admission Status: Elective Accout number: [id number] Admission Date: 11-22-2019 : 1965 Admission Diagnosis: Attending: SHREE DOMÍNGUEZ Current LOS: 2 Anticipated DC Date: Planned Disposition: Primary Insurance: MEDICAID [place] PENDING Discharge Planning Comments: CM MET WITH PATIENT AFTER OBTAINING VERBAL CONSENT. PATIENT PLANS TO DC TO HOME WHEN BETTER. STATES NO EQUIPMENT AT HOME. SHE HAS A CHEST TUBE AND IS ON O2 AT THIS TIME. MAY NEED WALK TEST PRIOR TO DC. UNSURE OF DC NEEDS AT THIS TIME. Tentering Machine Off Bearer: Maryanne Vogt DCPIA - Discharge Planning Initial Assessment Updated by [email or web address]: Maryanne Vogt on 11/24/19 4:06 pm * Is the patient Alert and Oriented? Yes * PCP NONE * Pharmacy [facility] * Preadmission Environment Home with Family * ADLs Independent * Additional services required to return to the preadmission environment? Yes * Can the patient safely return to the preadmission environment? Yes * Has this patient been hospitalized within the prior 30 days at any hospital? No External Providers External Provider: [facility] [place] Next Contact Date: Service Request Date: Service Type: Resolution: Reviewer: Comments: Last DP export: 12/19/19 2:50 pm Patient Name: ECHO RINALDI Page 33964 at 1732 All edits/amendments must be made on the electronic document DICTATION DATE: 12/19/191731 CHUCK WAGON COOK: CARMELINA 12/19/191731 RPT#: [id number] DC DATE: STATUS: ADM IN [facility] [address] [place] [address] END OF REPORT
--- NOTE | 2019-12-20 09:29 | MORECARE ---
CASE MANAGEMENT DISCHARGE SUMMARY PATIENT: ECHO RINALDI UNIT: [id number] ADM DATE: 11/22/19 AGE: 54 : 67 SEX: F ROOM/BED: D.2202 AUTHOR: SHAHID,DOC PHYSICIAN: REFERRING PHYSICIAN: SHREE DOMÍNGUEZ MD DATE OF SERVICE: 12/20/19 Discharge Plan Patient Name: ECHO RINALDI Facility: [facility]:[place] : 1965 Planned Disposition: Home with Home Health Anticipated Discharge Date: Discharge Date: 12/19/2019 Expected LOS: Initial Reviewer: [id number] Initial Review Date: 11/24/2019 Generated: 12/20/19 10:28 am Comments DCP- Discharge Planning Updated by [email or web address]: Malou Rico on 12/20/19 8:21 am RACHID HICKEY WITH DR STEVE'S OFFICE CALLED THIS AM ABOUT DC MED REC I WILL FAX DC CLINCIALS AGAIN TO HER OFFICE DCP- Discharge Planning Updated by [id number]: Malou Rico on 12/19/19 2:[address] PATIENT WILL BE DISCHARGING HOME TO HER BROTHERS HOUSE AT [address] [place] [address] IN [place], HER BROTHER ALEJANDRO'S NUMBER IS [phone] LINSEY HER BROTHER'S SIGNIFICANT OTHER IS HERE TO TAKE HER HOME WITH HER AND HAS BEEN EXPLAINED THE APPOINTMENTS AND URGENCY TO KEEP THESE APPOINTMENTS. I HAVE SPOKEN WITH RUPERTO AT DR STEVE'S OFFICE TO LET HER KNOW ABOUT DISCHARGE. DR TSE HAS AGREED TO FOLLOW THE CHEST TUBE & HOME HEALTH ORDERS AT [facility] IN [place]. I HAVE CALLED HARVEY AT [facility] TO LET HER KNOW THE ABOVE. I WILL FAX ALL CLINICALS TO [facility] AND DR STEVE'S OFFICE. CM TO FOLLOW AND ASSIST WITH DC PLANNING NEEDED DCP- Discharge Planning Updated by [id number]: Malou Rico on 12/18/19 2:[address] SPOKE WITH [facility] [phone] TRYING TO GET A PCP FOR THE PATIENT. THEY ARE ACCEPTING FLOYD PATIENT'S, BUT THEY WILL HAVE TO BE SCREENED TO SEE IF THEY WERE GOING TO ACCEPT HER [facility] APPOINTMENT FOR WedDecember @ 3:00 PM. I WILL FAX CLINICALS TO [phone] ATTGerson HICKEY. I SPOKE WITH HER ABOUT THE PATIENT. DR STEVE IS THE PCP. CM WILL FAX ALL CLINICALS TO THE OFFICE DCP- Discharge Planning Updated by [id number]: Malou Rico on 12/18/19 1:[address] SPOKE WITH PATIENT ABOUT DISCHARGE PLANNING NEEDS. HER FLOYD IS ACTIVE, BUT SHE DOES NOT HAVE A PCP. [email or web address] ([place] [phone]) NEEDS A PHYSICAL ADDRESS. THE ADDRESS THE PATIENT GAVE ME WAS, WHICH WAS ANASTASIA'S ADDRESS (FRIEND) [address] [address] SHE DOES NOT HAVE ANY MINUTES ON HER PHONE SO SHE GAVE ME HER SISTER'S NUMBER [phone] (ERASMO) SHE STATED THAT SHE WOULD BE STAYING AT HER BROTHERS (ALEJANDRO'S) HOME. SHE DID NOT KNOW HIS ADDRESS OR HIS NUMBER, BUT HE WOULD BE THE ONE TO PICK HER UP. I WILL ATTEMPT TO TRY TO FIND HER A PCP IN THE [place]. CM TO CONTINUE TO FOLLOW AND ASSIST NEEDED DCP- Discharge Planning Updated by [id number]: Malou Rico on 12/18/19 10:[address] RAY WITH [employer] [facility] SAID THAT THEY WOULD LOOK TO SEE IF THEY COULD TAKE THE PATIENT BEING FLOYD PENDING. I HAVE SENT THE REFRRAL OVER TO HIM. I ALSO CALLED NANI IN [email or web address] AND HE THOUGHT HER FLOYD IS ACTIVE OF NOW DCP- Discharge Planning Updated by [email or web address]: Rosibel Aquino on 12/07/19 6:[address] CM checked with Nani in [employer] to see if patient's Medicaid has went through processing yet. He stated that it hasn't yet but hopefully any day. CM will continue to follow this status to help with discharge planning / needs. DCP- Discharge Planning Updated by [email or web address]: Maryanne Vogt on 11/24/19 3:[address] Patient Name: ECHO RINALDI Admission Status: Elective Accout number: [id number] Admission Date: 11-22-2019 : 1965 Admission Diagnosis: Attending: SHREE DOMÍNGUEZ Current LOS: 2 Anticipated DC Date: Planned Disposition: Primary Insurance: MEDICAID [place] PENDING Discharge Planning Comments: CM MET WITH PATIENT AFTER OBTAINING VERBAL CONSENT. PATIENT PLANS TO DC TO HOME WHEN BETTER. STATES NO EQUIPMENT AT HOME. SHE HAS A CHEST TUBE AND IS ON O2 AT THIS TIME. MAY NEED WALK TEST PRIOR TO DC. UNSURE OF DC NEEDS AT THIS TIME. Sales And Service Agent: Maryanne Vogt DCPIA - Discharge Planning Initial Assessment Updated by [email or web address]: Maryanne Vogt on 11/24/19 4:06 pm * Is the patient Alert and Oriented? Yes * PCP NONE * Pharmacy [facility] * Preadmission Environment Home with Family * ADLs Independent * Additional services required to return to the preadmission environment? Yes * Can the patient safely return to the preadmission environment? Yes * Has this patient been hospitalized within the prior 30 days at any hospital? No Last DP export: 12/19/19 4:32 pm Patient Name: ECHO RINALDI Page 21800 at 0929 All edits/amendments must be made on the electronic document DICTATION DATE: 12/20/19927 VALVE INSERTER: CARMELINA 12/20/19927 RPT#: [id number] DC DATE:12/19/19 STATUS: DIS IN [facility] [address] [place] [address] END OF REPORT
--- NOTE | 2019-12-21 12:31 | MORECARE ---
CASE MANAGEMENT DISCHARGE SUMMARY PATIENT: ECHO RINALDI UNIT: [id number] ADM DATE: 11/22/19 AGE: 54 : 67 SEX: F ROOM/BED: D.2202 AUTHOR: SHAHID,DOC PHYSICIAN: REFERRING PHYSICIAN: SHREE DOMÍNGUEZ MD DATE OF SERVICE: 12/21/19 Discharge Plan Patient Name: ECHO RINALDI Facility: [facility]:[place] : 1965 Planned Disposition: Home with Home Health Anticipated Discharge Date: Discharge Date: 12/19/2019 Expected LOS: 0 Initial Reviewer: [id number] Initial Review Date: 11/24/2019 Generated: 12/21/19 1:31 pm Comments DCP- Discharge Planning Updated by [email or web address]: Malou Rico on 12/20/19 8:21 am RACHID HICKEY WITH DR STEVE'S OFFICE CALLED THIS AM ABOUT DC MED REC I WILL FAX DC CLINCIALS AGAIN TO HER OFFICE DCP- Discharge Planning Updated by [id number]: Malou Rico on 12/19/19 2:[address] PATIENT WILL BE DISCHARGING HOME TO HER BROTHERS HOUSE AT [address] [place] [address] IN [place], HER BROTHER ALEJANDRO'S NUMBER IS [phone] LINSEY HER BROTHER'S SIGNIFICANT OTHER IS HERE TO TAKE HER HOME WITH HER AND HAS BEEN EXPLAINED THE APPOINTMENTS AND URGENCY TO KEEP THESE APPOINTMENTS. I HAVE SPOKEN WITH RUPERTO AT DR STEVE'S OFFICE TO LET HER KNOW ABOUT DISCHARGE. DR TSE HAS AGREED TO FOLLOW THE CHEST TUBE & HOME HEALTH ORDERS AT [facility] IN [place]. I HAVE CALLED HARVEY AT [facility] TO LET HER KNOW THE ABOVE. I WILL FAX ALL CLINICALS TO [facility] AND DR STEVE'S OFFICE. CM TO FOLLOW AND ASSIST WITH DC PLANNING NEEDED DCP- Discharge Planning Updated by [id number]: Malou Rico on 12/18/19 2:[address] SPOKE WITH [facility] [phone] TRYING TO GET A PCP FOR THE PATIENT. THEY ARE ACCEPTING [facility] PATIENT'S, BUT THEY WILL HAVE TO BE SCREENED TO SEE IF THEY WERE GOING TO ACCEPT HER [facility] FOLLOW UP APPOINTMENT FOR WedDecember @ 3:00 PM. I WILL FAX CLINICALS TO [phone] ATTGerson HICKEY. I SPOKE WITH HER ABOUT THE PATIENT. DR STEVE IS THE PCP. CM WILL FAX ALL CLINICALS TO THE OFFICE DCP- Discharge Planning Updated by [id number]: Malou Rico on 12/18/19 1:[address] SPOKE WITH PATIENT ABOUT DISCHARGE PLANNING NEEDS. HER FLOYD IS ACTIVE, BUT SHE DOES NOT HAVE A PCP. [facility] (HARVEY [phone]) NEEDS A PHYSICAL ADDRESS. THE ADDRESS THE PATIENT GAVE ME WAS, WHICH WAS ANASTASIA'S ADDRESS (FRIEND) [address] [id number] SHE DOES NOT HAVE ANY MINUTES ON HER PHONE SO SHE GAVE ME HER SISTER'S NUMBER [phone] (ERASMO) SHE STATED THAT SHE WOULD BE STAYING AT HER BROTHERS (ALEJANDRO'S) HOME. SHE DID NOT KNOW HIS ADDRESS OR HIS NUMBER, BUT HE WOULD BE THE ONE TO PICK HER UP. I WILL ATTEMPT TO TRY TO FIND HER A PCP IN THE [place] AREA. CM TO CONTINUE TO FOLLOW AND ASSIST NEEDED DCP- Discharge Planning Updated by [email or web address]: Malou Rico on 12/18/19 10:[address] RAY WITH [facility] SAID THAT THEY WOULD LOOK TO SEE IF THEY COULD TAKE THE PATIENT BEING FLOYD PENDING. I HAVE SENT THE REFRRAL OVER TO HIM. I ALSO CALLED ANNI IN [facility] AND HE THOUGHT HER FLOYD IS ACTIVE OF NOW DCP- Discharge Planning Updated by [email or web address]: Rosibel Aquino on 12/07/19 6:[address] CM checked with Nani in [place] to see if patient's Medicaid has went through processing yet. He stated that it hasn't yet but hopefully any day. CM will continue to follow this status to help with discharge planning / needs. DCP- Discharge Planning Updated by [email or web address]: Maryanne Vogt on 11/24/19 3:[address] Patient Name: ECHO RINALDI Admission Status: Elective Accout number: [id number] Admission Date: 11-22-2019 : 1965 Admission Diagnosis: Attending: SHREE DOMÍNGUEZ Current LOS: 2 Anticipated DC Date: Planned Disposition: Primary Insurance: MEDICAID [place] PENDING Discharge Planning Comments: CM MET WITH PATIENT AFTER OBTAINING VERBAL CONSENT. PATIENT PLANS TO DC TO HOME WHEN BETTER. STATES NO EQUIPMENT AT HOME. SHE HAS A CHEST TUBE AND IS ON O2 AT THIS TIME. MAY NEED WALK TEST PRIOR TO DC. UNSURE OF DC NEEDS AT THIS TIME. Programming Equipment Operator: Maryanne Vogt DCPIA - Discharge Planning Initial Assessment Updated by [email or web address]: Maryanne Vogt on 11/24/19 4:06 pm * Is the patient Alert and Oriented? Yes * PCP NONE * Pharmacy [facility] * Preadmission Environment Home with Family * ADLs Independent * Additional services required to return to the preadmission environment? Yes * Can the patient safely return to the preadmission environment? Yes * Has this patient been hospitalized within the prior 30 days at any hospital? No Last DP export: 12/20/19 8:29 am Patient Name: ECHO RINALDI Page [phone] at 1231 All edits/amendments must be made on the electronic document DICTATION DATE: 12/21/19 1231 HEATING AND REFRIGERATION INSPECTOR: CARMELINA 12/21/19 1231 RPT#: [id number] DC DATE:12/19/19 STATUS: DIS IN [facility] [address] [place] [address] END OF REPORT
== END 2019-12-19 19:22 | disposition home health service (06) | DRG 163 ==
LOC: D.ICU 10:22 → D.CVICU 10:22 → D.ICU 13:35 → D.CVICU 12-03 19:35 → D.MS 12-14 09:37
PROVIDERS: Internal Medicine Nephrology; Internal Medicine Pulmonary Disease; Thoracic Surgery (Cardiothoracic Vascular Surgery); ADMIT Family Medicine; ATTEND Family Medicine
PROC: 0W9B00Z Drainage of Left Pleural Cavity with Drainage Device, Open Approach (ICD-10-PCS; principal; 2019-11-30 12:30)
PROC: 0BTG0ZZ Resection of Left Upper Lung Lobe, Open Approach (ICD-10-PCS; 2019-12-04)
PROC: 0BNG0ZZ Release Left Upper Lung Lobe, Open Approach (ICD-10-PCS; 2019-12-04)
PROC: 0BJ08ZZ Inspection of Tracheobronchial Tree, Via Natural or Artificial Opening Endoscopic (ICD-10-PCS; 2019-12-04)
DX: J86.9 Pyothorax without fistula (principal); J18.1 Lobar pneumonia, unspecified organism; J94.8 Other specified pleural conditions; I50.30 Unspecified diastolic (congestive) heart failure; F17.203 Nicotine dependence unspecified, with withdrawal; J44.1 Chronic obstructive pulmonary disease with (acute) exacerbation; D72.829 Elevated white blood cell count, unspecified; M19.90 Unspecified osteoarthritis, unspecified site; K21.9 Gastro-esophageal reflux disease without esophagitis; F41.8 Other specified anxiety disorders; E87.6 Hypokalemia; R53.81 Other malaise; F12.90 Cannabis use, unspecified, uncomplicated

== ENCOUNTER → 2019-12-27 09:51 | Outpatient (CLI) | payer MEDICAID ==
[2019-11-23 13:01] VITALS: BMI 24.9
[~2019-12-27 09:51] MED LIST: ABILIFY10 MG PO; ALBUTEROL2.5 MG/3 M INH; ATIVAN0.5 MG PO; FLORAJEN3 CAPS460 MG PO; FLUTICASONE PRO16 GM NASAL; HYDROCODON-ACE1 EAC7 PO; LEXAPRO10 MG PO; LIDODERM 5 %1 PATCH TRANSDERM; MUCINEX600 MG PO; Nicoderm [PBKC] TRANSDERM; PROTONIX40 MG PO; SINGULAIR10 MG PO; TESSALON PERLE100 MG PO
== END | disposition home or self-care (01) ==
LOC: D.RAD 09:51
PROVIDERS: ATTEND Orthopaedic Surgery
DX: J18.9 Pneumonia, unspecified organism (principal)

== ENCOUNTER → 2019-12-27 11:54 | Outpatient (CLI) | payer MEDICAID ==
[2019-11-23 13:01] VITALS: BMI 24.9
== END | disposition home or self-care (01) ==
LOC: D.RAD 11:54
PROVIDERS: ATTEND Orthopaedic Surgery
DX: Z48.89 Encounter for other specified surgical aftercare (principal)